=== PATIENT | male | born 1930 | race Caucasian/White ===

== ENCOUNTER 2019-03-07 11:59 | Inpatient (IN) | payer MEDICARE, OTHER ==
--- NOTE | 2019-03-07 13:14 | CT ---
CT head noncontrast HISTORY: Fall. Head injury. FINDINGS: No comparison. There is no evidence of acute intracranial hemorrhage or infarct. The ventri cles are mildly distended with diffuse volume loss. 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 There is no mass effect or shift of midline structures. Calcification in the arteri al structures of the brain base. Mucosal thickening within the ethmoid air cells. No air-fluid levels. IMPRESSION: No acute intracranial abnormalities are demonstrated.
--- NOTE | 2019-03-07 13:59 | RAD ---
XR Hip Lt 2-3 View HISTORY: Fall, left hip pain FINDINGS: No fracture or dislocation is identified. Degenerative changes are present. There is suggestion of lytic lesion in the neck of the left femur on the oblique image. This should b e evaluated with MRI.
[2019-03-07 14:02] LABS: #Basophils 0.1 thou/uL (0.0-0.2); #Eosinphils 0.2 thou/uL (0.0-0.7); #Lymphocytes 2.2 thou/uL (1.20-3.40); #Monocytes 0.8 thou/uL (0.11-0.59); #Neutrophils 4.9 thou/uL (1.40-6.50); %Basophils 0.8 % (0.0-1.0); %Eosinophils 2.4 % (0.0-10.0); %Monocytes 10.2 % (0.0-10.0); %Neutrophils 59.6 % (42.0-75.0); Hemoglobin 14.5 g/dL (14.0-18.0); Mean Corpuscular HGB CONC 32.2 g/dL (32.0-36.0); Mean Corpuscular Hemoglobin 31.7 pg (27.0-31.0); Mean Corpuscular Volume 98.4 fL (78.0-98.0); Mean Platelet Volume 7.2 fL (7.4-10.4); Platelet Count 258 thou/uL (130-400); RBC Distribution Width 13.3 % (11.5-14.5); Red Blood Cell (RBC) Count 4.58 mill/uL (4.70-6.10); White Blood Cell (WBC) Count 8.2 thou/uL (4.8-10.8)
--- NOTE | 2019-03-07 14:15 | RAD ---
Exam: XR Femur Lt 2 View STANDARD HISTORY: Left lower extremity pain. COMPARISON: None FINDINGS: There was suggestion of a lucency in the region of the left femoral neck on views of the left hip. Ho wever, this is not seen on this examination, and findings on views of left hip are likely artifactual and probably related to overlying soft tissues. No obvious lytic or sclerotic lesion is s een. No acute fracture, dislocation, or other acute osseous abnormality is identified. Calcifications seen posterior to the left knee which are difficult to further localize but could pote ntially be related to loose bodies within a Izquierdo's cyst. IMPRESSION: 1. Calcification's posterior to the knee which are difficult to further localize but could potentiall y be related to loose bodies within a Izquierdo's cyst. Ultrasound examination may be useful for further evaluation of questionable Izquierdo's cyst in the popliteal fossa. 2. No acute osseous abnormality.
[2019-03-07 14:29] LABS: ALT (SGPT) 25 U/L (8-55); AST (SGOT) 21 U/L (5-34); Albumin 3.9 g/dL (3.4-4.8); Alkaline Phosphatase 64 U/L (40-150); Anion Gap 14 mmol/L (10-20); BUN (Urea Nitrogen) 22 mg/dL (8.4-25.7); Bilirubin, Total 0.8 mg/dL (0.2-1.2); Calc. Creatinine Clearance 0 mL/min (70-130); Calcium 8.8 mg/dL (7.8-10.44); Carbon Dioxide 26 mmol/L (23-31); Chloride 96 mmol/L (98-107); Estimated GFR-MDRD 74; Globulin 2.4 g/dL (2.4-3.5); Glucose 107 mg/dL (83-110); Potassium 3.4 mmol/L (3.5-5.1); Protein, Total 6.3 g/dL (5.8-8.1); Sodium 133 mmol/L (136-145)
--- NOTE | 2019-03-07 17:56 | MRI ---
MRI Lower Ext Jt Lt without Con HISTORY: Questionable lytic lesion seen within the left femoral neck. History of several falls concer n for a fracture. COMPARISON: Plain film examination of the left hip done earlier today. FINDINGS: The pelvic ring is intact. The SI joints are symmetric. No diastases of the symphysis. No f ractures of the bony pelvic ring. Small [id number] images of the left hip show mild left hip abductor strain. There is no evidence o f fracture. There is no signs of any lytic bony process within the left femoral neck. Mild arthritic changes of the left hip joint are seen. There is a degenerative type tear of the hip labrum . There is no acute bony process noted. Mild tendinopathy changes of the hamstring tendon origins are incidentally seen. The gluteus minimus and medius tendons are intact with mild tendinopathy change. IMPRESSION: No acute injury. Incidental findings as noted above.
[2019-03-07 18:01] LABS: Bilirubin Small (Negative); Blood, Urine Negative (Negative); Clarity CLEAR (Clear); Glucose, Urine (Dipstick) Negative (Negative); Leukocyte Negative (Negative); Nitrite Negative (Negative); Protein, Urine (Dipstick) 100 mg/dL (Neg-Trace)
[2019-03-07 18:03] LABS: Bacteria/HPF None Seen HPF (None Seen); Pathc Cast-AUWi Flag 0.81 (0-2.49); RBC/HPF 0-3 HPF (0-3); Squamous Epithelial 0-3 HPF (0-3); WBC/HPF 0-3 HPF (0-3)
[2019-03-07 18:21] LABS: Hyaline Casts/LPF 0-3 HYALINE CAST LPF (0-3 Hyaline)
[2019-03-07] MEDS ORDERED: cloNIDine 0.1 MG TAB ONE (19:45)
[2019-03-07] MEDS ORDERED: Ondansetron PF 4 MG/2 ML Vial IVP PRN (21:08)
[2019-03-07] MEDS ORDERED: Ondansetron ODT 4 MG TAB PO PRN (21:08)
[2019-03-07] MEDS ORDERED: Acetaminophen 650 MG Suppository PR PRN (21:08)
[2019-03-07 21:30] LABS: Magnesium 2.2 mg/dL (1.6-2.6)
[2019-03-07] MEDS: hydrALAZINE 20 MG/ML VIAL SLOW IVP PRN (21:44)
--- NOTE | 2019-03-07 22:15 | RAD ---
PORTABLE CHEST: HISTORY: Shortness of breath. COMPARISON: None. FINDINGS: Heart size appears enlarged. There are chronic lung changes seen. There are pleural and parenchymal changes in the left base. There also appears to be elevation to the hemidiaphragm. The changes cou ld be chronic in nature. A PA and lateral chest film would be helpful in better assessing what porti on of this is elevated diaphragm and what portion is pleural and parenchymal lung change. IMPRESSION: Cardiomegaly with pleural and parenchymal change in the left base and what appears to be elevation of the left hemidiaphragm. Findings as noted above. POS: [facility]
--- NOTE | 2019-03-07 23:04 | HP ---
CHIEF COMPLAINT: Multiple falls and weakness. HISTORY OF PRESENT ILLNESS: Mr. Newell is a pleasant 88-year-old man with a history of CVA and hypertension, who had a fall on last week after attempting to get out of a sofa lazy boy. He reports hitting his head. The patient has had multiple falls since then due to loss of balance. Per his family, he has become progressively weaker and now requiring assistance in order to stand. He reports having issues with chronic lower back pain due to a herniated disk of L5, for which he has received physical therapy. He presented complaining of left hip pain. The patient denies having any dizziness, chest pain or shortness of breath. He has a known history of hypertension; however, his primary care physician took him off his blood pressure medicines approximately 2 weeks ago. According to his family, his blood pressure had normalized. He is reported to have had a viral gastroenteritis 2 weeks ago and the family feels that is what precipitated his gradual weakness and weight loss. Family unable to quantify exactly how much weight he has lost recently. In the emergency department, he was noted to be hypertensive with a systolic blood pressure of 210. He was asymptomatic with this. Per ER physician, plans were to give him a dose of clonidine. The patient underwent multiple investigations including a CT of the brain, which was unremarkable. He had a hip x-ray and femur x-ray with report stating there was a possible lytic lesion involving the left femur. Further evaluation with an MRI was recommended. MRI was done and showed no abnormal findings. The patient's family very concerned about his weakness and inability to walk or stand without any assistance, where normally he would be able to walk on his own independently and uses a walker for long distances. REVIEW OF SYSTEMS: The patient denies having any recent fevers, chills, or sweats. No headaches or dizziness. Reports feeling occasionally off balance when standing. Denies having any nausea or vomiting. No abdominal pain or cramping. He has been moving his bowels as normal. No recent diarrhea. No urinary symptoms. Denies having any numbness, or tingling involving any of his extremities. No vision disturbances or slurred speech. All other review of systems are negative. PAST MEDICAL HISTORY: 1. Previous CVA. 2. "Leaky valve". 3. Hypertension. 4. Skin cancer. PAST SURGICAL HISTORY: Skin cancer excision. SOCIAL HISTORY: The patient denies any smoking. He drinks rarely, usually on his birthday or other special occasions. Denies any illicit drug use. ALLERGIES: STATINS. CURRENT MEDICATIONS: None. PHYSICAL EXAMINATION: GENERAL: The patient appears well developed, well nourished, and is in no acute distress. VITAL SIGNS: Temperature 98, pulse 57, respirations 16, O2 saturation 96% on room air, blood pressure 188/98. HEENT: Normocephalic and atraumatic. Pupils are equal, round, reactive to light. Sclerae are without icterus. Oropharynx is clear. Extraocular movements normal. Facial movements normal. Facial sensation intact. NECK: Supple without lymphadenopathy. LUNGS: Clear to auscultation bilaterally. CARDIAC: Regular rate and rhythm. Audible murmur. ABDOMEN: Soft, nontender, nondistended. Normoactive bowel sounds present. No guarding or rigidity. No renal angle tenderness. EXTREMITIES: No lower leg swelling or edema. Power 5/5 in upper extremities, inability to straight leg raise on the left side due to pain in the left hip region. Sensation intact. SKIN: Without rash or jaundice. LABORATORY DATA: White blood count 8.2, hemoglobin 14.5, hematocrit 45, platelets 258. Sodium 133, ESR 13, potassium 3.4, anion gap 14, BUN 22, creatinine 0.96, GFR 74, glucose 107, and calcium 8.8, magnesium 2.2. LFTs unremarkable. CRP 0.78. Urinalysis notable for 100 of protein and 15 ketones and small amount of bilirubin. IMAGING DATA: As mentioned above in HPI. IMPRESSION AND PLAN: Mr. Newell is a pleasant 88-year-old man being admitted for management of the followin. Weakness/multiple falls. The patient reports feeling unsteady at times when he stands. CT of the brain unremarkable. Denies any dizziness, but does report lightheadedness. We will obtain orthostatic blood pressure. Audible murmur on exam. We will obtain echo and BNP, to assess for any underlying valvular heart disease being the culprit for his weakness. 2. Hypertensive urgency. No end-organ damage at this present time. The patient is asymptomatic. We will give p.r.n. antihypertensives and continue to monitor. The patient was recently on blood pressure medications. We will confirm and resume most recent medications given. Continue to monitor blood pressure. 3. Low back pain, chronic and per patient without any changes. No neuro deficits on exam involving the lower extremities. He has undergone multiple imaging studies including hip x-ray, MRI of the lower extremity and femur x-ray, and results essentially unremarkable. We will discuss with attending if CT pelvis would be beneficial. PT, OT are requested. 4. Gastrointestinal prophylaxis. 5. Deep venous thrombosis prophylaxis with mechanical SCDs. 6. Code status, DNR. Surrogate decision maker is his son, Salbador Newell. He has medical power of associate attorney. The patient's case to be discussed with Dr. Mullins for further recommendations. Job ID: [id number]
--- NOTE | 2019-03-08 02:05 | PDOC.EVN ---
Event Note - Event Note Event Note: Informed by RN patient with HR 40-60s. Went from NSR to 1st degree AV bloc, to 2nd degree and now to 3rd degree AV block. Patient sleeping at present. Stat EKG requested. If patient asymptomatic will continue to monitor. Cardiology consult for tmrw AM. Plan per discussion with Dr. Mullins. EKG done in ER: 1st degree AV block with blocked PACs and incomplete RBBB.
[2019-03-08] MEDS: hydrALAZINE 20 MG/ML VIAL SLOW IVP PRN ×2 (03:14→23:16)
[2019-03-08 05:06] LABS: #Basophils 0.1 thou/uL (0.0-0.2); #Eosinphils 0.1 thou/uL (0.0-0.7); #Lymphocytes 1.7 thou/uL (1.20-3.40); #Monocytes 0.5 thou/uL (0.11-0.59); #Neutrophils 3.8 thou/uL (1.40-6.50); %Basophils 0.9 % (0.0-1.0); %Eosinophils 2.2 % (0.0-10.0); %Lymphocytes 27.2 % (21.0-51.0); %Monocytes 8.2 % (0.0-10.0); %Neutrophils 61.5 % (42.0-75.0); Hemoglobin 14.2 g/dL (14.0-18.0); Mean Corpuscular HGB CONC 31.3 g/dL (32.0-36.0); Mean Corpuscular Hemoglobin 30.9 pg (27.0-31.0); Mean Corpuscular Volume 98.9 fL (78.0-98.0); Mean Platelet Volume 7.4 fL (7.4-10.4); Platelet Count 236 thou/uL (130-400); RBC Distribution Width 13.5 % (11.5-14.5); Red Blood Cell (RBC) Count 4.58 mill/uL (4.70-6.10); White Blood Cell (WBC) Count 6.2 thou/uL (4.8-10.8)
[2019-03-08 05:23] LABS: Anion Gap 14 mmol/L (10-20); BUN (Urea Nitrogen) 14 mg/dL (8.4-25.7); Calc. Creatinine Clearance 89 mL/min (70-130); Calcium 8.5 mg/dL (7.8-10.44); Carbon Dioxide 23 mmol/L (23-31); Chloride 100 mmol/L (98-107); Estimated GFR-MDRD Greater than 90; Glucose 106 mg/dL (83-110); Potassium 3.3 mmol/L (3.5-5.1); Sodium 134 mmol/L (136-145)
[2019-03-08] MEDS: Famotidine/PF 20 mg/2ml Vial SLOW IVP SCH ×2 (09:43→19:42)
--- NOTE | 2019-03-08 13:24 | PDOC.PN ---
- Subjective Encounter Start Date: 03/08/19 Encounter Start Time: 11:30 Subjective: Patient seen today for f/u on admission for multiple falls, transient -: leg weakness, and then overnight bradycardia with 2nd/3rd heartblock -: Cardiology consult added overnight - Objective Resuscitation Status - Order Detail: 03/07/19 21:08 Resuscitation Status Routine Co-Sign Provider: Resuscitation Status: DNAR: NO Resuscitation Discussed with: Family, son has MPOA Vital Signs & Weight: Vital Signs (12 hours) Temp Pulse Resp BP BP Pulse Ox 03/08/19 11:55 98.5 F 78 18 173/85 H 94 L 03/08/19 07:45 97.5 F L 80 18 159/76 H 94 L 03/08/19 04:30 66 178/75 H 03/08/19 04:00 97.9 F 48 L 18 94 L 03/08/19 03:14 49 L 193/88 H Weight Weight 86.183 kg Result Diagrams: 03/08/19 04:18 03/08/19 04:18 Phys Exam - Physical Examination HEENT: PERRLA, moist MMs Neck: no nodes, full ROM Respiratory: clear to auscultation bilateral Cardiovascular: RRR, no significant murmur Gastrointestinal: soft, non-tender Musculoskeletal: no edema, pulses present Neurological: normal sensation, moves all 4 limbs Lymphatic: no nodes Psychiatric: normal affect, A&O x 3 Deviation from normal: Pleasantly confused Skin: no rash, cap refill <2 seconds Dx/Plan (1) Hypertension Code(s): I10 - ESSENTIAL (PRIMARY) HYPERTENSION Status: Acute (2) TIA (transient ischemic attack) Code(s): G45.9 - TRANSIENT CEREBRAL ISCHEMIC ATTACK, UNSPECIFIED Status: Acute (3) Weakness Code(s): R53.1 - WEAKNESS Status: Acute - Plan cont current plan of care, PT/OT, psychologist social Awaiting Cardiology input, patient with bradycardia in the 30's overnight -: PT/OT evaluation, ECHO are still pending -: Per patient's family, INP Rehab evaluated pt in the ED but insurance req -: approval. Lives independently and some interim placement for PT/OT -: may be beneficial. CM consult has been requested. * .
--- NOTE | 2019-03-08 13:57 | CON ---
DATE OF CONSULTATION: 03/08/2019 ADMITTING PHYSICIAN: Hospitalist Service. CONSULTING PHYSICIAN: Dr. Lowery, Cardiology. REASON FOR CONSULTATION: Intermittent heart block. HISTORY OF PRESENT ILLNESS: Mr. Newell is a pleasant, 88-year-old, male with past medical history of hypertension. He tells me he regularly sees Dr. Freda Lira. He also gives history of a leaky aortic valve in the past, but cannot really tell me much more about cardiac history. He does have some moderate dementia and goes into tangential stories when asking his history. We were consulted because the patient developed second and third-degree heart block overnight. He was brought to the emergency room for hip pain and history of frequent falls. When asked, the patient has no memory of this. He does admit to some dizziness, and he knows that he has fallen at times, but cannot give me specifics. When asked when his last fall was, he tells me that I would have to ask the [facility] as they tell him when he has fallen. In the emergency room, his systolic blood pressure was 210. He tells me that he recently saw Dr. Freda Lira, who stopped all of his medications because he was healthy and did not need them. The patient's telemetry showed sinus rhythm with frequent ectopic PACs. He has had intermittent second and third-degree AV block with heart rates as low as 40 beats per minute. He is asymptomatic with this, the best I can tell, as he is lying in bed. He denies any chest pain, shortness of breath, dyspnea on exertion, or edema. BNP was mildly elevated on admission at 312. Chest x-ray shows a left pleural effusion. Cardiomegaly cannot be ruled out. Echocardiogram is ordered and is pending. PAST MEDICAL HISTORY: 1. Hypertension and history of previous CVA per initial H and P documented. 2. History of aortic regurgitation per the patient. PAST SURGICAL HISTORY: Unknown. SOCIAL HISTORY: The patient lives in [facility]. Denies any tobacco or alcohol use. ALLERGIES: STATINS ARE DOCUMENTED. CURRENT MEDICATIONS: None prior to admission. PHYSICAL EXAMINATION: GENERAL: This is a pleasant elderly male, who is in no acute distress. He is pleasant, resting comfortably. NEUROLOGIC: He is alert, awake, and oriented x3. VITAL SIGNS: Temperature 97.5, respiratory rate is 18, pulse is 80, blood pressure 159/76. I's and O's, not recorded. HEENT: Head is atraumatic and normocephalic. Mucous membranes are moist. NECK: Supple. No JVD or bruits noted. CHEST: Clear bilaterally with decreased breath sounds in the left lower lobe posteriorly. CARDIOVASCULAR: Reveals regular rate and rhythm with intermittent ectopy. ABDOMEN: Soft, nontender to palpation, and nondistended. EXTREMITIES: Show no clubbing, cyanosis, or edema. SKIN: Warm and dry. VASCULAR: Pedal pulses are 2+ equal and bilateral. LABORATORY DATA: As mentioned above. BMP shows sodium 134, potassium 3.3. IMPRESSION: 1. Complete heart block. 2. Second-degree atrioventricular block, type 2. 3. History of falls. 4. Hypertension. At this time, the patient is stable. Telemetry currently shows he is in sinus rhythm and he is asymptomatic. He is DNR status. I have attempted to discuss pacemaker placement with the patient. He does have some moderate dementia, and although he is agreeable, I would feel more comfortable if his family was aware of the situation and able to consent also. He does give me his daughter's name as a potential contact. I tried to call his son, who did not answer, and I left a message. Currently, we will keep him n.p.o. for potential pacemaker placement, and 2D echocardiogram is pending to rule out any congestive failure. His blood pressure is elevated, and we will address this when his n.p.o. status was removed. Currently, he is receiving hydralazine p.r.n. Job ID: [id number]
[2019-03-08] MEDS: Acetaminophen 325 MG TAB PO PRN (14:43)
--- NOTE | 2019-03-08 17:23 | CON ---
DATE OF CONSULTATION: REASON FOR CONSULTATION: Arrhythmia. HISTORY OF PRESENT ILLNESS: Mr. Moore is a pleasant 88-year-old gentleman, who has been seen and evaluated by Dr. Jon Vilchis in the past. The patient was last seen in 2017. At that time, he was seen for moderate aortic insufficiency. EKG at that time showed a right bundle branch block with left axis deviation. Recently, Mr. Newell presented with falls. It is very difficult to get a good history from Mr. Do. His thoughts seem to be tangential. He is not able to focus in on the question. Multiple questions were answered without a true answer to my question. It is unknown whether he is truly having syncopal episodes and falling. My suspicion is he has had leg weakness for some time, which has caused his recent falls. His EKG did suggest second-degree type 1 AV block. This was reviewed with Dr. Paul Ornelas in EP. Otherwise, please see Erica Romano's note for full details. PHYSICAL EXAMINATION: VITAL SIGNS: Blood pressure 160/80, pulse 75, temperature 98.1. GENERAL: Patient is a pleasant male, who is in no acute distress. The patient appears their stated age. NEUROLOGIC: The patient is alert and oriented x3 with no focal neurologic deficits. HEENT: Sclerae without icterus. Mouth has moist mucous membranes with normal pallor. NECK: No JVD. Carotid upstroke brisk. No bruits bilaterally. LUNGS: Clear to auscultation with unlabored respirations. BACK: No scoliosis or kyphosis. CARDIAC: Regular rate and rhythm with normal S1 and S2. No S3 or S4 noted. No significant rubs, murmurs, thrills, or gallops noted throughout the precordium. PMI is not displaced. There is no parasternal heave. ABDOMEN: Soft, nontender, nondistended. No peritoneal signs present. No hepatosplenomegaly. No abnormal striae. EXTREMITIES: 2+ femoral and 2+ dorsalis pedis pulses. No cyanosis, clubbing, or edema. SKIN: No gross abnormalities. PERTINENT LABORATORY DATA: Hemoglobin 14.2, hematocrit 45.3. IMPRESSION: 1. Recent fall. 2. Dysrhythmia. RECOMMENDATIONS: Mr. Moore does not have a true indication for a pacemaker. He does have right bundle branch block with left axis deviation, but I am unsure whether his falls are truly secondary to a dysrhythmia. I would like to speak to his family before proceeding with a more aggressive approach with a pacemaker. He may also benefit from a 3-week event recorder prior to any other treatment. Otherwise, from my standpoint, I do not have any further recommendations. Job ID: [id number]
[2019-03-09] MEDS: hydrALAZINE 20 MG/ML VIAL SLOW IVP PRN ×3 (03:18→17:05)
[2019-03-09] MEDS: Famotidine/PF 20 mg/2ml Vial SLOW IVP SCH (08:29)
[2019-03-09] MEDS: Acetaminophen 325 MG TAB PO PRN ×2 (08:31→19:48)
--- NOTE | 2019-03-09 18:33 | PDOC.PN ---
- Subjective Encounter Start Date: 03/09/19 Encounter Start Time: 18:30 Subjective: f/u s/p fall and dysrhythmia with 2nd degree Type I AV block. -: No new complaints currently. - Objective Resuscitation Status - Order Detail: 03/07/19 21:08 Resuscitation Status Routine Co-Sign Provider: Resuscitation Status: DNAR: NO Resuscitation Discussed with: Family, son has SEAMUS TONEY Reviewed: Yes Vital Signs & Weight: Vital Signs (12 hours) Temp Pulse Resp BP Pulse Ox 03/09/19 17:05 69 03/09/19 16:30 98.3 F 69 16 188/87 H 93 L 03/09/19 12:05 98.2 F 63 16 167/72 H 94 L 03/09/19 08:29 53 L 03/09/19 07:45 97.9 F 71 18 200/80 H 95 Weight Weight 190 lb Result Diagrams: 03/08/19 04:18 03/08/19 04:18 Additional Labs: Laboratory Tests 03/07/19 03/07/19 03/07/19 13:41 13:41 13:41 Sodium 133 L Potassium 3.4 L Magnesium 2.2 Creatine Kinase 212 H C-Reactive Protein 0.78 H B-Natriuretic Peptide 03/07/19 20:35 Sodium Potassium Magnesium Creatine Kinase C-Reactive Protein B-Natriuretic Peptide 312.7 H Radiology Reviewed by me: Yes (CT brain - neg) EKG Reviewed by me: Yes (Tele - A-fib in 80's) Phys Exam - Physical Examination Constitutional: NAD HEENT: PERRLA, sclera anicteric, oral pharynx no lesions Neck: no nodes, no JVD, supple, full ROM Respiratory: no wheezing, no rales, no rhonchi, clear to auscultation bilateral S1, S2 Cardiovascular: no significant murmur, no rub, gallop, irregular Gastrointestinal: soft, non-tender, no distention, positive bowel sounds Musculoskeletal: no edema, pulses present Neurological: normal sensation, moves all 4 limbs Psychiatric: A&O x 3 Skin: normal turgor, cap refill <2 seconds Dx/Plan (1) Second degree AV block, Mobitz type I Code(s): I44.1 - ATRIOVENTRICULAR BLOCK, SECOND DEGREE Status: Acute Comment : Plan for ILR in am, limit AV sanket blocking agents (2) Hypertension Code(s): I10 - ESSENTIAL (PRIMARY) HYPERTENSION Status: Chronic Qualifiers: Hypertension type: essential hypertension Qualified Code(s): I10 - Essential (primary) hypertension Comment: Labile, serial monitoring, Hydralazine IV PRN, start Hydralazine 25mg TID (3) Hypokalemia Code(s): E87.6 - HYPOKALEMIA Status: Acute Comment: KCL 40meq BID, repeat K + level in am (4) Weakness Code(s): R53.1 - WEAKNESS Status: Chronic Comment: Suspect chronic, PT for functional assessment, fall risk precautions - Plan PT/OT, social director, out of bed/ambulate, DVT proph w/SCDs Stable currently -: Start Hydralazine 25mg TID -: Plan for Implantable Loop Recorder 03/10/19 -: 2D echo pending -: AM lab: BMP * .
--- NOTE | 2019-03-09 18:43 | PRG ---
DATE OF SERVICE: 03/09/2019 SUBJECTIVE: No significant change overnight except for development of new onset atrial fibrillation. He appears to be rate controlled. OBJECTIVE: VITAL SIGNS: Blood pressure 167/72, pulse 63, temp 98.2. LUNGS: Clear to auscultation. HEART: Irregularly irregular. ABDOMEN: Soft, nontender, nondistended. EXTREMITIES: No edema. PERTINENT LABORATORY DATA: Hemoglobin 14.2. Creatinine 0.7. IMPRESSION: 1. New onset atrial fibrillation. 2. Falls. 3. Dysrhythmia. RECOMMENDATIONS: I had a long discussion with Mr. Newell's son Salbador today. I did recommend a 3-week event recorder. He does not feel his father will be able to tolerate the monitor. We therefore proceed with implantable loop recorder to assess for significant bradycardia that may be causing his falls. Again, it is very difficult to pin down Mr. Newell on true symptoms. I did discuss the procedure with Mr. Newell in full detail. Risks included, but not limited to the following: Bleeding, infection in addition to pneumothorax. All questions were answered. Mr. Newell would like to proceed with an implantable loop recorder. I also discussed anticoagulation therapy with Mr. Newell. He has reservations and is concerned about bleeding. His son does not feel he can be compliant with anticoagulation therapy. We will therefore proceed with full-dose aspirin for now. Job ID: [id number]
[2019-03-09] MEDS ORDERED: Potassium Chloride 20 MEQ TAB PO SCH (18:45)
[2019-03-09] MEDS ORDERED: Amlodipine 5 MG TAB PO SCH (18:45)
[2019-03-10] MEDS ORDERED: Lidocaine 1% w/Epinephrine 1:100K 20 ML VIAL ONE ×2 (07:17→07:29)
[2019-03-10] MEDS ORDERED: Amlodipine 5 MG TAB PO SCH (09:00)
[2019-03-10] MEDS: Famotidine/PF 20 mg/2ml Vial SLOW IVP SCH ×2 (09:05→10:01)
[2019-03-10] MEDS: Potassium Chloride 20 MEQ TAB PO SCH ×2 (09:05→16:37)
[2019-03-10] MEDS: Acetaminophen 325 MG TAB PO PRN ×2 (09:05→20:02)
[2019-03-10] MEDS: hydrALAZINE 25 MG TAB PO SCH ×4 (09:05→20:01)
[2019-03-10] MEDS: hydrALAZINE 20 MG/ML VIAL SLOW IVP PRN (11:15)
[2019-03-10] MEDS: cloNIDine 0.1 MG TAB PO PRN (12:27)
--- NOTE | 2019-03-10 15:45 | RAD ---
LUMBAR SPINE 3 VIEWS: HISTORY: Lumbar radicular pain. FINDINGS: There is some dextroscoliosis of the lumbar vertebral column with severe multilevel disk-osteophytosi s and facet arthrosis. Mild vertical height loss of T11 which has more of an old appearance. Eviden ce for grade I spondylolisthesis of L5 on S1 with probable bilateral pars defects. If there is kasi rn for radiculopathy, consideration for followup MRI might be of benefit. 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 Consider followup MRI. POS: [facility]
[2019-03-10 16:34] LABS: Anion Gap 13 mmol/L (10-20); BUN (Urea Nitrogen) 14 mg/dL (8.4-25.7); Calc. Creatinine Clearance 86 mL/min (70-130); Calcium 8.4 mg/dL (7.8-10.44); Carbon Dioxide 25 mmol/L (23-31); Chloride 100 mmol/L (98-107); Estimated GFR-MDRD Greater than 90; Glucose 106 mg/dL (83-110); Potassium 3.9 mmol/L (3.5-5.1); Sodium 134 mmol/L (136-145)
[2019-03-10] MEDS: Famotidine 20 MG TAB PO SCH (20:01)
--- NOTE | 2019-03-10 21:14 | PDOC.PN ---
- Subjective Encounter Start Date: 03/10/19 Encounter Start Time: 13:00 Doing ok. Tolerated the Loop recorder implantation well. Has had some pain in the left lower back and hip area. Says it is radiculopathy. Also says that he has taken supplements from a "Dr. Rivera" that lowered his blood sugar and blood pressure. Says his doctor ultimately took him off all BP meds and his BP normalized. Thinks BP meds are making his BP higher. - Objective Resuscitation Status - Order Detail: 03/07/19 21:08 Resuscitation Status Routine Co-Sign Provider: Resuscitation Status: DNAR: NO Resuscitation Discussed with: Family, son has MPOA Vital Signs & Weight: Vital Signs (12 hours) Temp Pulse Pulse Pulse Resp BP BP 03/10/19 18:04 03/10/19 16:37 61 03/10/19 16:00 97.5 F L 61 18 03/10/19 12:27 185/77 H 03/10/19 12:00 97.2 F L 73 15 03/10/19 11:15 84 03/10/19 10:38 74 74 226/89 H BP BP Pulse Ox 03/10/19 18:04 180/79 H 03/10/19 16:37 03/10/19 16:00 197/80 H 96 03/10/19 12:27 03/10/19 12:00 185/77 H 94 L 03/10/19 11:15 03/10/19 10:38 236/99 H Weight Weight 190 lb Result Diagrams: 03/08/19 04:18 03/10/19 16:07 Phys Exam - Physical Examination Constitutional: NAD Respiratory: no wheezing, no rales, no rhonchi Cardiovascular: no significant murmur, irregular Gastrointestinal: soft, non-tender, no distention, positive bowel sounds Musculoskeletal: no edema Slight TTP in the left mid-buttock area. Normal ROM of hip. Neurological: non-focal Psychiatric: normal affect Dx/Plan (1) Second degree AV block, Mobitz type I Code(s): I44.1 - ATRIOVENTRICULAR BLOCK, SECOND DEGREE Status: Acute Comment : Plan for ILR in am, limit AV sanket blocking agents (2) Sciatica Code(s): M54.30 - SCIATICA, UNSPECIFIED SIDE Status: Acute (3) Fall Code(s): W19.XXXA - UNSPECIFIED FALL, INITIAL ENCOUNTER Status: Acute (4) Hypertension Code(s): I10 - ESSENTIAL (PRIMARY) HYPERTENSION Status: Chronic Qualifiers: Hypertension type: essential hypertension Qualified Code(s): I10 - Essential (primary) hypertension Comment: Labile, serial monitoring, Hydralazine IV PRN, start Hydralazine 25mg TID - Plan * X-ray of lumbar spine. * Increase the hydralazine. * Discussed his feelings regarding the BP meds. Will not be stopping them. * Cards to follow up on the loop recorder. * Awaiting placement in rehab.
[2019-03-11] MEDS: hydrALAZINE 20 MG/ML VIAL SLOW IVP PRN ×3 (05:45→18:43)
[2019-03-11] MEDS: Acetaminophen 325 MG TAB PO PRN ×3 (08:31→21:47)
[2019-03-11] MEDS: Potassium Chloride 20 MEQ TAB PO SCH ×2 (08:31→16:46)
[2019-03-11] MEDS: Famotidine 20 MG TAB PO SCH ×2 (08:31→20:13)
[2019-03-11] MEDS: hydrALAZINE 25 MG TAB PO SCH ×3 (08:31→20:12)
[2019-03-11] MEDS: cloNIDine 0.1 MG TAB PO PRN ×2 (16:46→21:47)
[2019-03-12] MEDS: Acetaminophen 325 MG TAB PO PRN ×3 (01:58→14:55)
[2019-03-12] MEDS: Potassium Chloride 20 MEQ TAB PO SCH (08:45)
[2019-03-12] MEDS: Famotidine 20 MG TAB PO SCH ×2 (08:45→21:11)
[2019-03-12] MEDS: hydrALAZINE 25 MG TAB PO SCH ×3 (08:45→21:11)
--- NOTE | 2019-03-12 09:05 | PDOC.PN ---
- Subjective Encounter Start Date: 03/11/19 Encounter Start Time: 13:00 Patient is doing well. No complaints. His son is her today. - Objective Resuscitation Status - Order Detail: 03/07/19 21:08 Resuscitation Status Routine Co-Sign Provider: Resuscitation Status: DNAR: NO Resuscitation Discussed with: Family, son has MPOA Vital Signs & Weight: Vital Signs (12 hours) Temp Pulse Resp BP BP Pulse Ox 03/12/19 08:45 74 03/12/19 08:38 97.4 F L 74 20 179/77 H 95 03/12/19 04:00 97.8 F 48 L 16 113/55 L 95 03/11/19 23:13 169/75 H 03/11/19 22:40 188/79 H 03/11/19 22:10 184/76 H 03/11/19 21:47 197/113 H 03/11/19 21:45 197/113 H Weight Weight 183 lb I&O: 03/11/19 03/12/19 03/13/19 06:59 06:59 06:59 Intake Total 200 200 Output Total 450 450 Balance -250 -250 Result Diagrams: 03/08/19 04:18 03/10/19 16:07 Phys Exam - Physical Examination Constitutional: NAD Respiratory: no wheezing, no rales, no rhonchi, clear to auscultation bilateral Cardiovascular: RRR, no significant murmur Gastrointestinal: soft, non-tender, no distention Neurological: non-focal Skin: normal turgor Deviation from normal: Left chest loop recorder incision looks good. Dx/Plan (1) Second degree AV block, Mobitz type I Code(s): I44.1 - ATRIOVENTRICULAR BLOCK, SECOND DEGREE Status: Acute Comment : Plan for ILR in am, limit AV sanket blocking agents (2) Sciatica Code(s): M54.30 - SCIATICA, UNSPECIFIED SIDE Status: Acute (3) Fall Code(s): W19.XXXA - UNSPECIFIED FALL, INITIAL ENCOUNTER Status: Acute (4) Hypertension Code(s): I10 - ESSENTIAL (PRIMARY) HYPERTENSION Status: Chronic Qualifiers: Hypertension type: essential hypertension Qualified Code(s): I10 - Essential (primary) hypertension Comment: Labile, serial monitoring, Hydralazine IV PRN, start Hydralazine 25mg TID - Plan * Long discussion with the patient's son. * He did confirm what I had expected which is that the patient's PCP did not stop his BP meds. The physician had stopped one, but the patient had already discontinued the others himself. * The patient seem have decent recall and can interact somewhat normally, but has clear deficits in judgment and reasoning. * I re-affirmed to the patient that I do not intend to stop his antihypertensives. In fact they may need to be titrated upward. * He is medically stable to go to rehab.
[2019-03-12] MEDS ORDERED: Aspirin 81 mg Enteric Coated Tablet PO SCH (11:02)
[2019-03-12] MEDS ORDERED: Amlodipine 10 MG TAB PO SCH (11:30)
[2019-03-12] MEDS ORDERED: Aspirin 325 MG TAB PO SCH (11:30)
[2019-03-12 11:45] LABS: Anion Gap 11 mmol/L (10-20); BUN (Urea Nitrogen) 14 mg/dL (8.4-25.7); Calc. Creatinine Clearance 79 mL/min (70-130); Calcium 8.3 mg/dL (7.8-10.44); Carbon Dioxide 22 mmol/L (23-31); Chloride 98 mmol/L (98-107); Estimated GFR-MDRD Greater than 90; Glucose 116 mg/dL (83-110); Potassium 4.7 mmol/L (3.5-5.1); Sodium 126 mmol/L (136-145)
[2019-03-12] MEDS: cloNIDine 0.1 MG TAB PO PRN (14:56)
[2019-03-12] MEDS ORDERED: Nitroglycerin 0.4 MG TAB (25 Tab Bottle) SL SCH (17:30)
--- NOTE | 2019-03-12 18:18 | PDOC.PN ---
- Subjective Encounter Start Date: 03/12/19 Encounter Start Time: 11:20 Subjective: pt up in bed no complains - Objective Resuscitation Status - Order Detail: 03/07/19 21:08 Resuscitation Status Routine Co-Sign Provider: Resuscitation Status: DNAR: NO Resuscitation Discussed with: Family, son has MPOA Vital Signs & Weight: Vital Signs (12 hours) Temp Pulse Resp BP BP BP Pulse Ox 03/12/19 18:00 190/79 H 03/12/19 15:47 97.9 F 68 20 196/81 H 94 L 03/12/19 14:57 198/93 H 03/12/19 12:12 97.6 F 60 18 192/110 H 93 L 03/12/19 08:45 74 95 03/12/19 08:38 97.4 F L 74 20 179/77 H 95 Weight Weight 183 lb I&O: 03/11/19 03/12/19 03/13/19 06:59 06:59 06:59 Intake Total 200 200 Output Total 450 450 Balance -250 -250 Result Diagrams: 03/08/19 04:18 03/12/19 11:14 Phys Exam - Physical Examination Neck: no nodes, no JVD, supple, full ROM Respiratory: no wheezing, no rales, no rhonchi, wheezing present, clear to auscultation bilateral Cardiovascular: RRR, no significant murmur, no rub, gallop, irregular Dx/Plan (1) Second degree AV block, Mobitz type I Code(s): I44.1 - ATRIOVENTRICULAR BLOCK, SECOND DEGREE Status: Acute Comment : Plan for ILR in am, limit AV sanket blocking agents (2) Fall Code(s): W19.XXXA - UNSPECIFIED FALL, INITIAL ENCOUNTER Status: Acute (3) Sciatica Code(s): M54.30 - SCIATICA, UNSPECIFIED SIDE Status: Acute (4) TIA (transient ischemic attack) Code(s): G45.9 - TRANSIENT CEREBRAL ISCHEMIC ATTACK, UNSPECIFIED Status: Acute (5) Hypertension Code(s): I10 - ESSENTIAL (PRIMARY) HYPERTENSION Status: Chronic Qualifiers: Hypertension type: essential hypertension Qualified Code(s): I10 - Essential (primary) hypertension Comment: Labile, serial monitoring, Hydralazine IV PRN, start Hydralazine 25mg TID - Plan pt's bp still uncontrolled -: will add additional prns. per notes pt has not been -: taking his bp meds at home. He also states that ASA -: will cause him to have brain bleed. * . Review of Systems - Review of Systems Respiratory: negative: Cough, Dry, Shortness of Breath, Hemoptysis, SOB with Excertion, Pleuritic Pain, Sputum, Wheezing Cardiovascular: negative: chest pain, palpitations, orthopnea, paroxysmal nocturnal dyspnea, edema, light headedness, other Gastrointestinal: negative: Nausea, Vomiting, Abdominal Pain, Diarrhea, Constipation, Melena, Hematochezia, Other - Medications/Allergies Allergies/Adverse Reactions: Allergies Allergy/AdvReac Type Severity Reaction Status Date / Time Bcpeeny-Vtg-Jjj Reductase Allergy Verified 03/07/19 21:17 Inhibitor Medications: Current Medications Acetaminophen (Tylenol) 650 mg PO Q4H PRN PRN Reason: Headache/Fever/Mild Pain (1-3) Last Admin: 03/12/19 14:55 Dose: 650 mg Acetaminophen (Tylenol) 650 mg [place] Q4H PRN PRN Reason: Headache/Fever/Mild Pain (1-3) Amlodipine Besylate (Norvasc) 10 mg PO DAILY [facility] Clonidine (Catapres) 0.1 mg PO Q4H PRN PRN Reason: SBP Greater Than 180 Last Admin: 03/12/19 14:56 Dose: 0.1 mg Famotidine (Pepcid) 20 mg PO Q12HR [facility] Last Admin: 03/12/19 08:45 Dose: 20 mg Hydralazine HCl (Apresoline) 10 mg SLOW IVP Q4H PRN PRN Reason: SBP Greater Than 180 Last Admin: 03/11/19 18:43 Dose: 10 mg Hydralazine HCl (Apresoline) 50 mg PO TID [facility] Last Admin: 03/12/19 14:53 Dose: 50 mg Hydralazine HCl (Apresoline) 20 mg SLOW IVP Q6H PRN PRN Reason: Hypertension Nitroglycerin (Nitrostat) 0.4 mg SL NOW [facility] Stop: 03/12/19 19:30 Last Admin: 03/12/19 17:38 Dose: 0.4 mg Ondansetron HCl (Zofran Odt) 4 mg PO Q6H PRN PRN Reason: Nausea/Vomiting Ondansetron HCl (Zofran) 4 mg IVP Q6H PRN PRN Reason: Nausea/Vomiting Sodium Chloride (Flush - Normal Saline) 10 ml IVF Q12HR PRN PRN Reason: Saline Flush Sodium Chloride (Flush - Normal Saline) 10 ml IVF PRN PRN PRN Reason: Saline Flush
[2019-03-13] MEDS: Acetaminophen 325 MG TAB PO PRN ×4 (03:21→22:09)
[2019-03-13] MEDS: hydrALAZINE 25 MG TAB PO SCH ×3 (08:13→21:02)
[2019-03-13] MEDS: Famotidine 20 MG TAB PO SCH ×2 (08:14→21:02)
[2019-03-13] MEDS: Amlodipine 10 MG TAB PO SCH (08:14)
[2019-03-13] MEDS ORDERED: Aspirin 325 MG TAB PO SCH (09:00)
[2019-03-13 10:07] LABS: Anion Gap 13 mmol/L (10-20); BUN (Urea Nitrogen) 12 mg/dL (8.4-25.7); Calc. Creatinine Clearance 78 mL/min (70-130); Calcium 8.7 mg/dL (7.8-10.44); Carbon Dioxide 21 mmol/L (23-31); Chloride 97 mmol/L (98-107); Estimated GFR-MDRD Greater than 90; Glucose 130 mg/dL (83-110); Potassium 4.3 mmol/L (3.5-5.1); Sodium 127 mmol/L (136-145)
[2019-03-13] MEDS: cloNIDine 0.1 MG TAB PO PRN (12:28)
--- NOTE | 2019-03-13 19:43 | PDOC.PN ---
- Subjective Encounter Start Date: 03/13/19 Encounter Start Time: 09:00 Subjective: pt up in bed no complains - Objective Resuscitation Status - Order Detail: 03/07/19 21:08 Resuscitation Status Routine Co-Sign Provider: Resuscitation Status: DNAR: NO Resuscitation Discussed with: Family, son has MPOA Vital Signs & Weight: Vital Signs (12 hours) Temp Pulse Pulse Pulse Pulse Resp BP 03/13/19 16:45 03/13/19 15:23 53 L 03/13/19 15:19 97.4 F L 53 L 18 03/13/19 12:26 97.6 F 72 18 03/13/19 11:20 72 66 73 191/79 H 03/13/19 09:29 03/13/19 08:05 97.9 F 68 20 BP BP BP BP Pulse Ox 03/13/19 16:45 157/70 H 03/13/19 15:23 03/13/19 15:19 180/73 H 95 03/13/19 12:26 183/78 H 94 L 03/13/19 11:20 186/74 H 176/76 H 03/13/19 09:29 175/76 H 03/13/19 08:05 200/83 H 93 L Weight Weight 183 lb 5 oz I&O: 03/12/19 03/13/19 03/14/19 06:59 06:59 06:59 Intake Total 200 1050 1200 Output Total 450 1025 1000 Balance -250 25 200 Result Diagrams: 03/08/19 04:18 03/13/19 09:35 Phys Exam - Physical Examination Neck: no nodes, no JVD, supple, full ROM Respiratory: no wheezing, no rales, no rhonchi, wheezing present, clear to auscultation bilateral Cardiovascular: RRR, no significant murmur, no rub, gallop, irregular Gastrointestinal: soft, non-tender, no distention, positive bowel sounds Dx/Plan (1) Second degree AV block, Mobitz type I Code(s): I44.1 - ATRIOVENTRICULAR BLOCK, SECOND DEGREE Status: Acute Comment : Plan for ILR in am, limit AV sanket blocking agents (2) Fall Code(s): W19.XXXA - UNSPECIFIED FALL, INITIAL ENCOUNTER Status: Acute (3) Sciatica Code(s): M54.30 - SCIATICA, UNSPECIFIED SIDE Status: Acute (4) TIA (transient ischemic attack) Code(s): G45.9 - TRANSIENT CEREBRAL ISCHEMIC ATTACK, UNSPECIFIED Status: Acute (5) Hypertension Code(s): I10 - ESSENTIAL (PRIMARY) HYPERTENSION Status: Chronic Qualifiers: Hypertension type: essential hypertension Qualified Code(s): I10 - Essential (primary) hypertension Comment: Labile, serial monitoring, Hydralazine IV PRN, start Hydralazine 25mg TID - Plan pt's bp is high, will conitnue to titrate his meds -: will need rehab vs snf -: pt has loop recorder * . Review of Systems - Review of Systems Respiratory: negative: Cough, Dry, Shortness of Breath, Hemoptysis, SOB with Excertion, Pleuritic Pain, Sputum, Wheezing Cardiovascular: negative: chest pain, palpitations, orthopnea, paroxysmal nocturnal dyspnea, edema, light headedness, other - Medications/Allergies Allergies/Adverse Reactions: Allergies Allergy/AdvReac Type Severity Reaction Status Date / Time Rpjmatu-Yzt-Ova Reductase Allergy Verified 03/07/19 21:17 Inhibitor Medications: Current Medications Acetaminophen (Tylenol) 650 mg PO Q4H PRN PRN Reason: Headache/Fever/Mild Pain (1-3) Last Admin: 03/13/19 12:29 Dose: 650 mg Acetaminophen (Tylenol) 650 mg [place] Q4H PRN PRN Reason: Headache/Fever/Mild Pain (1-3) Amlodipine Besylate (Norvasc) 10 mg PO DAILY [facility] Last Admin: 03/13/19 08:14 Dose: 10 mg Clonidine (Catapres) 0.1 mg PO Q4H PRN PRN Reason: SBP Greater Than 180 Last Admin: 03/13/19 12:28 Dose: 0.1 mg Famotidine (Pepcid) 20 mg PO Q12HR [facility] Last Admin: 03/13/19 08:14 Dose: 20 mg Hydralazine HCl (Apresoline) 10 mg SLOW IVP Q4H PRN PRN Reason: SBP Greater Than 180 Last Admin: 03/11/19 18:43 Dose: 10 mg Hydralazine HCl (Apresoline) 50 mg PO TID [facility] Last Admin: 03/13/19 15:23 Dose: 50 mg Hydralazine HCl (Apresoline) 20 mg SLOW IVP Q6H PRN PRN Reason: Hypertension Ondansetron HCl (Zofran Odt) 4 mg PO Q6H PRN PRN Reason: Nausea/Vomiting Ondansetron HCl (Zofran) 4 mg IVP Q6H PRN PRN Reason: Nausea/Vomiting Sodium Chloride (Flush - Normal Saline) 10 ml IVF Q12HR PRN PRN Reason: Saline Flush Sodium Chloride (Flush - Normal Saline) 10 ml IVF PRN PRN PRN Reason: Saline Flush
[2019-03-14] MEDS: hydrALAZINE 20 MG/ML VIAL SLOW IVP PRN ×2 (00:26→13:06)
[2019-03-14] MEDS: Amlodipine 10 MG TAB PO SCH (08:48)
[2019-03-14] MEDS: hydrALAZINE 25 MG TAB PO SCH ×3 (08:48→21:34)
[2019-03-14] MEDS: Famotidine 20 MG TAB PO SCH ×2 (08:48→21:34)
[2019-03-14] MEDS: Acetaminophen 325 MG TAB PO PRN (08:50)
[2019-03-14 09:06] LABS: #Basophils 0.1 thou/uL (0.0-0.2); #Eosinphils 0.1 thou/uL (0.0-0.7); #Lymphocytes 2.4 thou/uL (1.20-3.40); #Monocytes 0.7 thou/uL (0.11-0.59); #Neutrophils 6.3 thou/uL (1.40-6.50); %Basophils 0.8 % (0.0-1.0); %Eosinophils 0.7 % (0.0-10.0); %Lymphocytes 24.9 % (21.0-51.0); %Monocytes 7.2 % (0.0-10.0); %Neutrophils 66.4 % (42.0-75.0); Hemoglobin 16.1 g/dL (14.0-18.0); Mean Corpuscular HGB CONC 32.7 g/dL (32.0-36.0); Mean Corpuscular Hemoglobin 31.9 pg (27.0-31.0); Mean Corpuscular Volume 97.6 fL (78.0-98.0); Platelet Count 265 thou/uL (130-400); RBC Distribution Width 13.1 % (11.5-14.5); Red Blood Cell (RBC) Count 5.06 mill/uL (4.70-6.10); White Blood Cell (WBC) Count 9.5 thou/uL (4.8-10.8)
[2019-03-14 09:30] LABS: Anion Gap 13 mmol/L (10-20); BUN (Urea Nitrogen) 12 mg/dL (8.4-25.7); Calc. Creatinine Clearance 73 mL/min (70-130); Calcium 9.7 mg/dL (7.8-10.44); Carbon Dioxide 24 mmol/L (23-31); Chloride 96 mmol/L (98-107); Estimated GFR-MDRD 89; Glucose 136 mg/dL (83-110); Potassium 3.9 mmol/L (3.5-5.1); Sodium 129 mmol/L (136-145)
[2019-03-14] MEDS: Lisinopril 20 MG TAB PO SCH (10:30)
--- NOTE | 2019-03-14 14:42 | PQF ---
CLINICAL DOCUMENTATION IMPROVEMENT CLARIFICATION FORM: ICD-10 Updated PLEASE DO AN ADDENDUM TO THE PROGRESS NOTE WITH ANY DOCUMENTATION UPDATES OR ADDITIONS AND CARRY THROUGH TO DC SUMMARY. THANK YOU. DATE: 03/14/2019; 03/15/2019; 03/16/2019 ATTN: Dr. Mullins Please exercise your independent, professional judgment in responding to the clarification form. Clinical indicators are provided on the bottom of this form for your review Please check appropriate box(s): [ x ] Hyponatremia [ ] Insignificant lab value [ ] Other diagnosis [ ] Unable to determine In addition, please specify: Present on Admission (POA): [ ] Yes [ x ] No [ ] Unable to determine For continuity of documentation, please document condition throughout progress notes and discharge summary. Thank You. CLINICAL INDICATORS - SIGNS / SYMPTOMS/ LABS are present in the medical record: 03/10/2019 03/12/2019 03/13/2019 LABS: Sodium 134 126 127 PN 03/12: Second degree AV Basilio hernandez type I Hypertension. pt's bp still uncontrolled - will add additional prns. 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 Weakness/multiple falls. PN 03/10:Hypertension. Increase the hydralazine. TREATMENT: Lab Orders for [facility] 03/10, 03/12, 03/13, 03/14, 03/15 MAR: Order 03/10: Hydralazine 50 mg po TID Thank you, Evette (This form is maintained as a part of the permanent medical record) 2014 [employer]. All Rights Reserved Evette Acharya RN, BSN [email or web address] Office: [phone] [facility]
[2019-03-14] MEDS: Ketorolac Tromethamine 30 MG/ML VIAL IVP SCH (16:04)
--- NOTE | 2019-03-14 18:12 | PDOC.PN ---
- Subjective Encounter Start Date: 03/14/19 Encounter Start Time: 11:15 Subjective: pt up in bed complains of pain to his left lumbar area - Objective Resuscitation Status - Order Detail: 03/07/19 21:08 Resuscitation Status Routine Co-Sign Provider: Resuscitation Status: DNAR: NO Resuscitation Discussed with: Family, son has MPOA Vital Signs & Weight: Vital Signs (12 hours) Temp Pulse Resp BP BP BP Pulse Ox 03/14/19 16:04 74 157/67 H 03/14/19 16:00 97.7 F 74 16 157/67 H 93 L 03/14/19 13:06 71 200/81 H 03/14/19 12:45 97.6 F 76 16 200/81 H 96 03/14/19 10:30 197/80 H 03/14/19 08:48 66 178/74 H 03/14/19 08:00 94 L 03/14/19 07:36 97.3 F L 66 16 178/74 H 94 L Weight Weight 179 lb 8 oz I&O: 03/13/19 03/14/19 03/15/19 06:59 06:59 06:59 Intake Total 1050 1200 Output Total 1025 1000 Balance 25 200 Result Diagrams: 03/14/19 09:00 03/14/19 09:00 Phys Exam - Physical Examination Neck: no nodes, no JVD, supple, full ROM Respiratory: no wheezing, no rales, no rhonchi, wheezing present, clear to auscultation bilateral Cardiovascular: RRR, no significant murmur, no rub, gallop, irregular Gastrointestinal: soft, non-tender, no distention, positive bowel sounds Musculoskeletal: no edema, pulses present, edema present Neurological: non-focal, normal sensation, moves all 4 limbs Dx/Plan (1) Second degree AV block, Mobitz type I Code(s): I44.1 - ATRIOVENTRICULAR BLOCK, SECOND DEGREE Status: Acute Comment : Plan for ILR in am, limit AV sanket blocking agents (2) Fall Code(s): W19.XXXA - UNSPECIFIED FALL, INITIAL ENCOUNTER Status: Acute (3) Sciatica Code(s): M54.30 - SCIATICA, UNSPECIFIED SIDE Status: Acute (4) TIA (transient ischemic attack) Code(s): G45.9 - TRANSIENT CEREBRAL ISCHEMIC ATTACK, UNSPECIFIED Status: Acute (5) Hypertension Code(s): I10 - ESSENTIAL (PRIMARY) HYPERTENSION Status: Chronic Qualifiers: Hypertension type: essential hypertension Qualified Code(s): I10 - Essential (primary) hypertension Comment: Labile, serial monitoring, Hydralazine IV PRN, start Hydralazine 25mg TID - Plan pt walked with PT. PT stated that pt has been limping on his left leg -: xray did indicate osteopenia, will start pt on toradol for 3 doses and see -: if this helps. will get left hip xray * . Review of Systems - Review of Systems Cardiovascular: negative: chest pain, palpitations, orthopnea, paroxysmal nocturnal dyspnea, edema, light headedness, other Gastrointestinal: negative: Nausea, Vomiting, Abdominal Pain, Diarrhea, Constipation, Melena, Hematochezia, Other - Medications/Allergies Allergies/Adverse Reactions: Allergies Allergy/AdvReac Type Severity Reaction Status Date / Time Iemdbcf-Kai-Ekd Reductase Allergy Verified 03/07/19 21:17 Inhibitor Medications: Current Medications Acetaminophen (Tylenol) 650 mg PO Q4H PRN PRN Reason: Headache/Fever/Mild Pain (1-3) Last Admin: 03/14/19 08:50 Dose: 650 mg Acetaminophen (Tylenol) 650 mg [place] Q4H PRN PRN Reason: Headache/Fever/Mild Pain (1-3) Amlodipine Besylate (Norvasc) 10 mg PO DAILY [facility] Last Admin: 03/14/19 08:48 Dose: 10 mg Clonidine (Catapres) 0.1 mg PO Q4H PRN PRN Reason: SBP Greater Than 180 Last Admin: 03/13/19 12:28 Dose: 0.1 mg Famotidine (Pepcid) 20 mg PO Q12HR [facility] Last Admin: 03/14/19 08:48 Dose: 20 mg Hydralazine HCl (Apresoline) 10 mg SLOW IVP Q4H PRN PRN Reason: SBP Greater Than 180 Last Admin: 03/11/19 18:43 Dose: 10 mg Hydralazine HCl (Apresoline) 50 mg PO TID [facility] Last Admin: 03/14/19 16:04 Dose: 50 mg Hydralazine HCl (Apresoline) 20 mg SLOW IVP Q6H PRN PRN Reason: Hypertension Last Admin: 03/14/19 13:06 Dose: 20 mg Ketorolac Tromethamine (Toradol) 15 mg IVP 0800,1600,2359 [facility] Stop: 03/15/19 08:01 Last Admin: 03/14/19 16:04 Dose: 15 mg Lisinopril (Zestril) 20 mg PO DAILY [facility] Last Admin: 03/14/19 10:30 Dose: 20 mg Ondansetron HCl (Zofran Odt) 4 mg PO Q6H PRN PRN Reason: Nausea/Vomiting Ondansetron HCl (Zofran) 4 mg IVP Q6H PRN PRN Reason: Nausea/Vomiting Sodium Chloride (Flush - Normal Saline) 10 ml IVF Q12HR PRN PRN Reason: Saline Flush Last Admin: 03/13/19 21:03 Dose: 10 ml Sodium Chloride (Flush - Normal Saline) 10 ml IVF PRN PRN PRN Reason: Saline Flush
--- NOTE | 2019-03-14 19:10 | RAD ---
2 VIEWS LEFT HIP: Date: 03/14/19 COMPARISON: 03/07/19. HISTORY: Fall with left hip pain. FINDINGS: 2 views of the left hip show no evidence of acute fracture or dislocation. No degenerative changes ar e seen. IMPRESSION: Unremarkable exam. POS: C
[2019-03-15] MEDS: Ketorolac Tromethamine 30 MG/ML VIAL IVP SCH ×2 (00:47→09:06)
[2019-03-15 06:20] LABS: #Basophils 0.1 thou/uL (0.0-0.2); #Eosinphils 0.1 thou/uL (0.0-0.7); #Lymphocytes 2.2 thou/uL (1.20-3.40); #Monocytes 0.8 thou/uL (0.11-0.59); %Basophils 0.8 % (0.0-1.0); %Eosinophils 1.4 % (0.0-10.0); %Lymphocytes 26.8 % (21.0-51.0); %Monocytes 9.6 % (0.0-10.0); %Neutrophils 61.5 % (42.0-75.0); Hemoglobin 14.3 g/dL (14.0-18.0); Mean Corpuscular HGB CONC 32.5 g/dL (32.0-36.0); Mean Corpuscular Volume 98.5 fL (78.0-98.0); Mean Platelet Volume 6.9 fL (7.4-10.4); Platelet Count 234 thou/uL (130-400); RBC Distribution Width 12.9 % (11.5-14.5); Red Blood Cell (RBC) Count 4.48 mill/uL (4.70-6.10); White Blood Cell (WBC) Count 8.1 thou/uL (4.8-10.8)
[2019-03-15 06:41] LABS: Anion Gap 11 mmol/L (10-20); BUN (Urea Nitrogen) 15 mg/dL (8.4-25.7); Calc. Creatinine Clearance 65 mL/min (70-130); Calcium 8.6 mg/dL (7.8-10.44); Carbon Dioxide 25 mmol/L (23-31); Chloride 97 mmol/L (98-107); Estimated GFR-MDRD 77; Glucose 108 mg/dL (83-110); Potassium 4.6 mmol/L (3.5-5.1); Sodium 128 mmol/L (136-145)
[2019-03-15] MEDS: Amlodipine 10 MG TAB PO SCH (09:09)
[2019-03-15] MEDS: Lisinopril 20 MG TAB PO SCH (09:09)
[2019-03-15] MEDS: hydrALAZINE 25 MG TAB PO SCH ×3 (09:09→21:57)
[2019-03-15] MEDS: Famotidine 20 MG TAB PO SCH ×2 (09:09→21:57)
--- NOTE | 2019-03-15 16:20 | PDOC.PN ---
- Subjective Encounter Start Date: 03/15/19 Encounter Start Time: 10:45 Subjective: pt up in bed no complains - Objective Resuscitation Status - Order Detail: 03/07/19 21:08 Resuscitation Status Routine Co-Sign Provider: Resuscitation Status: DNAR: NO Resuscitation Discussed with: Family, son has MPOA Vital Signs & Weight: Vital Signs (12 hours) Temp Pulse Pulse Pulse Resp BP BP 03/15/19 15:27 72 72 185/77 H 165/70 H 03/15/19 12:00 97.4 F L 74 18 03/15/19 09:09 72 03/15/19 08:35 97.7 F 72 16 BP Pulse Ox 03/15/19 15:27 03/15/19 12:00 140/67 94 L 03/15/19 09:09 03/15/19 08:35 194/82 H 94 L Weight Weight 181 lb 14.4 oz I&O: 03/14/19 03/15/19 03/16/19 06:59 06:59 06:59 Intake Total 1200 180 480 Output Total 1000 325 Balance 200 -145 480 Result Diagrams: 03/15/19 06:08 03/15/19 06:08 Phys Exam - Physical Examination Respiratory: no wheezing, no rales, no rhonchi, wheezing present, clear to auscultation bilateral Cardiovascular: RRR, no significant murmur, no rub, gallop, irregular Gastrointestinal: soft, non-tender, no distention, positive bowel sounds Musculoskeletal: no edema, pulses present, edema present Dx/Plan (1) Second degree AV block, Mobitz type I Code(s): I44.1 - ATRIOVENTRICULAR BLOCK, SECOND DEGREE Status: Acute Comment : Plan for ILR in am, limit AV sanket blocking agents (2) Fall Code(s): W19.XXXA - UNSPECIFIED FALL, INITIAL ENCOUNTER Status: Acute (3) Sciatica Code(s): M54.30 - SCIATICA, UNSPECIFIED SIDE Status: Acute (4) TIA (transient ischemic attack) Code(s): G45.9 - TRANSIENT CEREBRAL ISCHEMIC ATTACK, UNSPECIFIED Status: Acute (5) Hypertension Code(s): I10 - ESSENTIAL (PRIMARY) HYPERTENSION Status: Chronic Qualifiers: Hypertension type: essential hypertension Qualified Code(s): I10 - Essential (primary) hypertension Comment: Labile, serial monitoring, Hydralazine IV PRN, start Hydralazine 25mg TID - Plan pt up in bed feels well -: his pain has improved -: will wait for PT to walk him to see his his left hip pain -: has improved. Awaiting rehab placement -: bp meds titrated * . Review of Systems - Review of Systems Respiratory: negative: Cough, Dry, Shortness of Breath, Hemoptysis, SOB with Excertion, Pleuritic Pain, Sputum, Wheezing Cardiovascular: negative: chest pain, palpitations, orthopnea, paroxysmal nocturnal dyspnea, edema, light headedness, other Gastrointestinal: negative: Nausea, Vomiting, Abdominal Pain, Diarrhea, Constipation, Melena, Hematochezia, Other - Medications/Allergies Allergies/Adverse Reactions: Allergies Allergy/AdvReac Type Severity Reaction Status Date / Time Hnnrbee-Qwv-Hgm Reductase Allergy Verified 03/07/19 21:17 Inhibitor Medications: Current Medications Acetaminophen (Tylenol) 650 mg PO Q4H PRN PRN Reason: Headache/Fever/Mild Pain (1-3) Last Admin: 03/14/19 08:50 Dose: 650 mg Acetaminophen (Tylenol) 650 mg [place] Q4H PRN PRN Reason: Headache/Fever/Mild Pain (1-3) Amlodipine Besylate (Norvasc) 10 mg PO DAILY [facility] Last Admin: 03/15/19 09:09 Dose: 10 mg Clonidine (Catapres) 0.1 mg PO Q4H PRN PRN Reason: SBP Greater Than 180 Last Admin: 03/13/19 12:28 Dose: 0.1 mg Famotidine (Pepcid) 20 mg PO Q12HR [facility] Last Admin: 03/15/19 09:09 Dose: 20 mg Hydralazine HCl (Apresoline) 10 mg SLOW IVP Q4H PRN PRN Reason: SBP Greater Than 180 Last Admin: 03/11/19 18:43 Dose: 10 mg Hydralazine HCl (Apresoline) 20 mg SLOW IVP Q6H PRN PRN Reason: Hypertension Last Admin: 03/14/19 13:06 Dose: 20 mg Hydralazine HCl (Apresoline) 75 mg PO TID [facility] Last Admin: 03/15/19 09:09 Dose: 75 mg Lisinopril (Zestril) 20 mg PO DAILY [facility] Last Admin: 03/15/19 09:09 Dose: 20 mg Ondansetron HCl (Zofran Odt) 4 mg PO Q6H PRN PRN Reason: Nausea/Vomiting Ondansetron HCl (Zofran) 4 mg IVP Q6H PRN PRN Reason: Nausea/Vomiting Sodium Chloride (Flush - Normal Saline) 10 ml IVF Q12HR PRN PRN Reason: Saline Flush Last Admin: 03/13/19 21:03 Dose: 10 ml Sodium Chloride (Flush - Normal Saline) 10 ml IVF PRN PRN PRN Reason: Saline Flush
[2019-03-15] MEDS: Acetaminophen 325 MG TAB PO PRN (16:35)
[2019-03-15] MEDS: hydrALAZINE 20 MG/ML VIAL SLOW IVP PRN (23:58)
[2019-03-16] MEDS: Acetaminophen 325 MG TAB PO PRN ×3 (06:39→19:50)
[2019-03-16] MEDS: Famotidine 20 MG TAB PO SCH ×2 (09:01→20:49)
[2019-03-16] MEDS: Lisinopril 20 MG TAB PO SCH (09:01)
[2019-03-16] MEDS: Amlodipine 10 MG TAB PO SCH (09:01)
[2019-03-16] MEDS: hydrALAZINE 25 MG TAB PO SCH ×3 (09:01→20:49)
[2019-03-16] MEDS: Ketorolac Tromethamine 30 MG/ML VIAL IVP SCH (18:08)
--- NOTE | 2019-03-16 22:56 | PDOC.PN ---
- Subjective Encounter Start Date: 03/16/19 Encounter Start Time: 12:45 Subjective: pt up in bed son at bedside -: worked with PT some pain to his right hip -: per PT not his left hip - Objective Resuscitation Status - Order Detail: 03/07/19 21:08 Resuscitation Status Routine Co-Sign Provider: Resuscitation Status: DNAR: NO Resuscitation Discussed with: Family, son has MPOA Vital Signs & Weight: Vital Signs (12 hours) Temp Pulse Pulse Pulse Resp BP BP 03/16/19 20:49 71 150/67 H 03/16/19 19:51 97.4 F L 71 18 03/16/19 16:00 98.4 F 65 18 03/16/19 14:00 70 71 205/83 H 03/16/19 13:40 63 03/16/19 12:00 98.2 F 63 18 BP BP Pulse Ox 03/16/19 20:49 03/16/19 19:51 150/67 H 94 L 03/16/19 16:00 164/58 H 96 03/16/19 14:00 189/75 H 03/16/19 13:40 03/16/19 12:00 150/52 H 94 L Weight Weight 181 lb 14.4 oz I&O: 03/15/19 03/16/19 03/17/19 06:59 06:59 06:59 Intake Total 180 1220 750 Output Total 325 3120 500 Balance -145 -1900 250 Result Diagrams: 03/15/19 06:08 03/15/19 06:08 Phys Exam - Physical Examination Neck: no nodes, no JVD, supple, full ROM Respiratory: no wheezing, no rales, no rhonchi, wheezing present, clear to auscultation bilateral Cardiovascular: RRR, no significant murmur, no rub, gallop, irregular Gastrointestinal: soft, non-tender, no distention, positive bowel sounds Dx/Plan (1) Second degree AV block, Mobitz type I Code(s): I44.1 - ATRIOVENTRICULAR BLOCK, SECOND DEGREE Status: Acute Comment : Plan for ILR in am, limit AV sanket blocking agents (2) Fall Code(s): W19.XXXA - UNSPECIFIED FALL, INITIAL ENCOUNTER Status: Acute (3) Sciatica Code(s): M54.30 - SCIATICA, UNSPECIFIED SIDE Status: Acute (4) TIA (transient ischemic attack) Code(s): G45.9 - TRANSIENT CEREBRAL ISCHEMIC ATTACK, UNSPECIFIED Status: Acute (5) Hypertension Code(s): I10 - ESSENTIAL (PRIMARY) HYPERTENSION Status: Chronic Qualifiers: Hypertension type: essential hypertension Qualified Code(s): I10 - Essential (primary) hypertension Comment: Labile, serial monitoring, Hydralazine IV PRN, start Hydralazine 25mg TID - Plan pt has loop recorder, spoke with son who stated -: that his bill for 2months for his supplements was 1000$ -: pt was on NO and lithium -: pt's bp liable. i have put him on toradol for 4 doses to see if his -: his pain improves. Awaiting placement * . Review of Systems - Review of Systems Respiratory: negative: Cough, Dry, Shortness of Breath, Hemoptysis, SOB with Excertion, Pleuritic Pain, Sputum, Wheezing Cardiovascular: negative: chest pain, palpitations, orthopnea, paroxysmal nocturnal dyspnea, edema, light headedness, other - Medications/Allergies Allergies/Adverse Reactions: Allergies Allergy/AdvReac Type Severity Reaction Status Date / Time Ntwmiic-Udf-Bxd Reductase Allergy Verified 03/07/19 21:17 Inhibitor Medications: Current Medications Acetaminophen (Tylenol) 650 mg PO Q4H PRN PRN Reason: Headache/Fever/Mild Pain (1-3) Last Admin: 03/16/19 19:50 Dose: 650 mg Acetaminophen (Tylenol) 650 mg UT Q4H PRN PRN Reason: Headache/Fever/Mild Pain (1-3) Amlodipine Besylate (Norvasc) 10 mg PO DAILY [facility] Last Admin: 03/16/19 09:01 Dose: 10 mg Clonidine (Catapres) 0.1 mg PO Q4H PRN PRN Reason: SBP Greater Than 180 Last Admin: 03/13/19 12:28 Dose: 0.1 mg Famotidine (Pepcid) 20 mg PO Q12HR [facility] Last Admin: 03/16/19 20:49 Dose: 20 mg Hydralazine HCl (Apresoline) 10 mg SLOW IVP Q4H PRN PRN Reason: SBP Greater Than 180 Last Admin: 03/15/19 23:58 Dose: 10 mg Hydralazine HCl (Apresoline) 20 mg SLOW IVP Q6H PRN PRN Reason: Hypertension Last Admin: 03/14/19 13:06 Dose: 20 mg Hydralazine HCl (Apresoline) 75 mg PO TID [facility] Last Admin: 03/16/19 20:49 Dose: 75 mg Ketorolac Tromethamine (Toradol) 15 mg IVP Q6HR [facility] Stop: 03/17/19 12:01 Last Admin: 03/16/19 18:08 Dose: 15 mg Lisinopril (Zestril) 20 mg PO DAILY [facility] Last Admin: 03/16/19 09:01 Dose: 20 mg Ondansetron HCl (Zofran Odt) 4 mg PO Q6H PRN PRN Reason: Nausea/Vomiting Ondansetron HCl (Zofran) 4 mg IVP Q6H PRN PRN Reason: Nausea/Vomiting Sodium Chloride (Flush - Normal Saline) 10 ml IVF Q12HR PRN PRN Reason: Saline Flush Last Admin: 03/13/19 21:03 Dose: 10 ml Sodium Chloride (Flush - Normal Saline) 10 ml IVF PRN PRN PRN Reason: Saline Flush
[2019-03-17] MEDS: Ketorolac Tromethamine 30 MG/ML VIAL IVP SCH ×3 (00:33→15:58)
[2019-03-17] MEDS: Acetaminophen 325 MG TAB PO PRN ×4 (04:24→21:16)
[2019-03-17] MEDS: Lisinopril 20 MG TAB PO SCH (09:20)
[2019-03-17] MEDS: hydrALAZINE 25 MG TAB PO SCH ×3 (09:20→21:14)
[2019-03-17] MEDS: Amlodipine 10 MG TAB PO SCH (09:21)
[2019-03-17] MEDS: Famotidine 20 MG TAB PO SCH ×2 (09:21→21:16)
--- NOTE | 2019-03-17 09:36 | PDOC.PN ---
- Subjective Encounter Start Date: 03/17/19 Encounter Start Time: 09:33 Feels ok. Says he continues to have some discomfort in the left hip which he believes is sciatica. No other complaints. - Objective Resuscitation Status - Order Detail: 03/07/19 21:08 Resuscitation Status Routine Co-Sign Provider: Resuscitation Status: DNAR: NO Resuscitation Discussed with: Family, son has MPOA Vital Signs & Weight: Vital Signs (12 hours) Temp Pulse Resp BP BP BP Pulse Ox 03/17/19 09:21 62 03/17/19 09:20 62 150/67 H 03/17/19 08:00 97.9 F 62 18 175/74 H 95 03/17/19 04:00 98.2 F 67 18 142/65 H 95 Weight Weight 181 lb 14.4 oz I&O: 03/16/19 03/17/19 03/18/19 06:59 06:59 06:59 Intake Total 1220 1110 Output Total 3120 1000 Balance -1900 110 Result Diagrams: 03/15/19 06:08 03/15/19 06:08 Phys Exam - Physical Examination Constitutional: NAD Respiratory: no wheezing, no rales, no rhonchi, clear to auscultation bilateral Cardiovascular: RRR Frequent ectopy, bigem. Gastrointestinal: soft, non-tender, no distention, positive bowel sounds Musculoskeletal: no edema Neurological: non-focal Psychiatric: normal affect Dx/Plan (1) Second degree AV block, Mobitz type I Code(s): I44.1 - ATRIOVENTRICULAR BLOCK, SECOND DEGREE Status: Acute Comment : Plan for ILR in am, limit AV sanket blocking agents (2) Sciatica Code(s): M54.30 - SCIATICA, UNSPECIFIED SIDE Status: Acute (3) Fall Code(s): W19.XXXA - UNSPECIFIED FALL, INITIAL ENCOUNTER Status: Acute (4) Hypertension Code(s): I10 - ESSENTIAL (PRIMARY) HYPERTENSION Status: Chronic Qualifiers: Hypertension type: essential hypertension Qualified Code(s): I10 - Essential (primary) hypertension Comment: Labile, serial monitoring, Hydralazine IV PRN, start Hydralazine 25mg TID (5) Weakness Code(s): R53.1 - WEAKNESS Status: Chronic Comment: Suspect chronic, PT for functional assessment, fall risk precautions - Plan * BP generally improved. Not perfect, but adequate control. * He has a history of resistance to prescribed antihypertensives and favoring multiple supplements. * Unclear whether he will adhere to the meds once DC'd. * Continue PT. Encouraged him to work with PT to improve the sciatica and strength. * [facility]HONATHAN TRAVIS. Working on placement.
[2019-03-17] MEDS ORDERED: Ketorolac Tromethamine 30 MG/ML VIAL IVP SCH (15:00)
[2019-03-17] MEDS ORDERED: Ketorolac Tromethamine 60 MG/2 ML VIAL IM SCH (15:15)
[2019-03-17] MEDS: cloNIDine 0.1 MG TAB PO PRN (17:28)
[2019-03-18] MEDS: Acetaminophen 325 MG TAB PO PRN ×2 (04:42→17:41)
[2019-03-18] MEDS: Famotidine 20 MG TAB PO SCH ×2 (09:01→21:05)
[2019-03-18] MEDS: Amlodipine 10 MG TAB PO SCH (09:01)
[2019-03-18] MEDS: Lisinopril 20 MG TAB PO SCH (09:01)
[2019-03-18] MEDS: hydrALAZINE 25 MG TAB PO SCH ×3 (09:01→21:04)
--- NOTE | 2019-03-18 10:58 | PDOC.PN ---
- Subjective Encounter Start Date: 03/18/19 Encounter Start Time: 10:56 Doing fine. NO complaints. Working on AL placement now. - Objective Resuscitation Status - Order Detail: 03/07/19 21:08 Resuscitation Status Routine Co-Sign Provider: Resuscitation Status: DNAR: NO Resuscitation Discussed with: Family, son has MPOA Vital Signs & Weight: Vital Signs (12 hours) Temp Pulse Resp BP BP Pulse Ox 03/18/19 09:01 46 L 160/69 H 03/18/19 06:53 98.1 F 46 L 16 185/78 H 94 L 03/18/19 04:00 98.2 F 51 L 16 160/67 H 96 03/17/19 23:35 98.1 F 47 L 16 150/66 H 95 Weight Weight 181 lb 14.4 oz I&O: 03/17/19 03/18/19 03/19/19 06:59 06:59 06:59 Intake Total 1110 1080 Output Total 1000 550 Balance 110 530 Result Diagrams: 03/15/19 06:08 03/15/19 06:08 Phys Exam - Physical Examination Constitutional: NAD Respiratory: no wheezing, no rales, no rhonchi Cardiovascular: RRR, no significant murmur, no rub Gastrointestinal: soft, non-tender, no distention Musculoskeletal: no edema Psychiatric: normal affect Dx/Plan (1) Second degree AV block, Mobitz type I Code(s): I44.1 - ATRIOVENTRICULAR BLOCK, SECOND DEGREE Status: Acute Comment : Plan for ILR in am, limit AV sanket blocking agents (2) Sciatica Code(s): M54.30 - SCIATICA, UNSPECIFIED SIDE Status: Acute (3) Fall Code(s): W19.XXXA - UNSPECIFIED FALL, INITIAL ENCOUNTER Status: Acute (4) Hypertension Code(s): I10 - ESSENTIAL (PRIMARY) HYPERTENSION Status: Chronic Qualifiers: Hypertension type: essential hypertension Qualified Code(s): I10 - Essential (primary) hypertension Comment: Labile, serial monitoring, Hydralazine IV PRN, start Hydralazine 25mg TID (5) Weakness Code(s): R53.1 - WEAKNESS Status: Chronic Comment: Suspect chronic, PT for functional assessment, fall risk precautions - Plan * Doing well. * AL placement process. Stable for DC anytime. * BP adequate. * HR normal now. Suspect machine is not accurately counting his HR. Has bigem at times.
[2019-03-18 15:14] VITALS: BMI 23.3
[2019-03-19] MEDS: Famotidine 20 MG TAB PO SCH ×2 (08:40→20:03)
[2019-03-19] MEDS: Lisinopril 20 MG TAB PO SCH (08:40)
[2019-03-19] MEDS: hydrALAZINE 25 MG TAB PO SCH ×3 (08:42→20:01)
[2019-03-19] MEDS: Amlodipine 10 MG TAB PO SCH (08:42)
[2019-03-19] MEDS: Acetaminophen 325 MG TAB PO PRN ×2 (08:48→18:33)
--- NOTE | 2019-03-19 15:54 | PDOC.PN ---
- Subjective Encounter Start Date: 03/19/19 Encounter Start Time: 09:50 Still doing well. Continues to have some pain in the left hip/buttock. - Objective Resuscitation Status - Order Detail: 03/07/19 21:08 Resuscitation Status Routine Co-Sign Provider: Resuscitation Status: DNAR: NO Resuscitation Discussed with: Family, son has MPOA Vital Signs & Weight: Vital Signs (12 hours) Temp Pulse Resp BP BP BP Pulse Ox 03/19/19 08:42 62 178/56 H 03/19/19 08:40 178/56 H 03/19/19 08:00 98.4 F 62 18 178/56 H 95 03/19/19 04:00 97.8 F 45 L 16 167/89 H 97 Weight Admit Weight 190 lb Weight 181 lb 14.4 oz I&O: 03/18/19 03/19/19 03/20/19 06:59 06:59 06:59 Intake Total 1080 720 Output Total 287 041 7912 Balance 530 320 -1225 Result Diagrams: 03/15/19 06:08 03/15/19 06:08 Phys Exam - Physical Examination Constitutional: NAD Respiratory: no wheezing, no rales, no rhonchi Cardiovascular: RRR, no significant murmur Gastrointestinal: soft, non-tender, no distention Musculoskeletal: no edema Dx/Plan (1) Second degree AV block, Mobitz type I Code(s): I44.1 - ATRIOVENTRICULAR BLOCK, SECOND DEGREE Status: Acute Comment : Plan for ILR in am, limit AV sanket blocking agents (2) Sciatica Code(s): M54.30 - SCIATICA, UNSPECIFIED SIDE Status: Acute (3) Fall Code(s): W19.XXXA - UNSPECIFIED FALL, INITIAL ENCOUNTER Status: Acute (4) Hypertension Code(s): I10 - ESSENTIAL (PRIMARY) HYPERTENSION Status: Chronic Qualifiers: Hypertension type: essential hypertension Qualified Code(s): I10 - Essential (primary) hypertension Comment: Labile, serial monitoring, Hydralazine IV PRN, start Hydralazine 25mg TID (5) Weakness Code(s): R53.1 - WEAKNESS Status: Chronic Comment: Suspect chronic, PT for functional assessment, fall risk precautions - Plan * Stable. * Awaiting AL placement. * His BP is variable, but generally high. On three good meds with high doses. Adding more at this point will not likely be of much benefit. He is somewhat resistant to anti-hypertensives in general and prefers supplements. * Continue PT.
[2019-03-20] MEDS: Acetaminophen 325 MG TAB PO PRN (07:56)
[2019-03-20] MEDS: Amlodipine 10 MG TAB PO SCH (07:57)
[2019-03-20] MEDS: hydrALAZINE 25 MG TAB PO SCH ×3 (07:57→21:26)
[2019-03-20] MEDS: Lisinopril 20 MG TAB PO SCH (07:57)
[2019-03-20] MEDS: Famotidine 20 MG TAB PO SCH ×2 (08:30→21:26)
--- NOTE | 2019-03-20 15:15 | PDOC.PN ---
- Subjective Encounter Start Date: 03/20/19 Encounter Start Time: 09:30 Doing well. Says watching the news on TV is bringing back a lot of memories for him from his time in the . No new complaints. Still has some discomfort with the left sciatica. - Objective Resuscitation Status - Order Detail: 03/07/19 21:08 Resuscitation Status Routine Co-Sign Provider: Resuscitation Status: DNAR: NO Resuscitation Discussed with: Family, son has MPOA Vital Signs & Weight: Vital Signs (12 hours) Temp Pulse Resp BP BP BP Pulse Ox 03/20/19 14:19 62 158/52 H 03/20/19 12:00 152/67 H 03/20/19 08:00 95 03/20/19 07:57 62 158/52 H 03/20/19 07:30 98.2 F 67 18 178/65 H 95 Weight Admit Weight 190 lb Weight 181 lb 14.4 oz I&O: 03/19/19 03/20/19 03/21/19 06:59 06:59 06:59 Intake Total 720 960 238 Output Total 400 3275 Balance 320 -2315 238 Result Diagrams: 03/15/19 06:08 03/15/19 06:08 Phys Exam - Physical Examination Constitutional: NAD Respiratory: no wheezing, no rales, no rhonchi Cardiovascular: RRR, no significant murmur Gastrointestinal: soft, non-tender, no distention Musculoskeletal: no edema Neurological: non-focal Psychiatric: normal affect, A&O x 3 Skin: no rash Dx/Plan (1) Second degree AV block, Mobitz type I Code(s): I44.1 - ATRIOVENTRICULAR BLOCK, SECOND DEGREE Status: Acute Comment : Implanted loop recorder this admission (2) Sciatica Code(s): M54.30 - SCIATICA, UNSPECIFIED SIDE Status: Acute Comment: Continue PT (3) Fall Code(s): W19.XXXA - UNSPECIFIED FALL, INITIAL ENCOUNTER Status: Acute (4) Hypertension Code(s): I10 - ESSENTIAL (PRIMARY) HYPERTENSION Status: Chronic Qualifiers: Hypertension type: essential hypertension Qualified Code(s): I10 - Essential (primary) hypertension Comment: Several good meds at good dosing. Patient resistant to rx meds and prefers supplements. Very unlikely to remain compliant with meds after discharge per family. Will not add new meds. Adequate control. (5) Weakness Code(s): R53.1 - WEAKNESS Status: Chronic Comment: Suspect chronic, PT for functional assessment, fall risk precautions - Plan * Still awaiting insurance approval and placement. * Continue PT.
[2019-03-21] MEDS: Amlodipine 10 MG TAB PO SCH (08:23)
[2019-03-21] MEDS: hydrALAZINE 25 MG TAB PO SCH ×2 (08:24→15:39)
[2019-03-21] MEDS: Famotidine 20 MG TAB PO SCH (08:24)
[2019-03-21] MEDS: Acetaminophen 325 MG TAB PO PRN (08:26)
[2019-03-21] MEDS: Lisinopril 20 MG TAB PO SCH (08:26)
[2019-03-21 11:50] VITALS: TEMP 97.9
--- NOTE | 2019-03-21 15:05 | DIS ---
DATE OF ADMISSION: 03/07/2019 DATE OF DISCHARGE: 03/21/2019 DISCHARGE DISPOSITION: To half-way facility. DISCHARGE DIAGNOSES: 1. Second-degree atrioventricular block. 2. Hypertension. 3. Frequent falls. 4. Generalized weakness. DISCHARGE MEDICATIONS: Include; 1. Amlodipine 10 mg daily. 2. Pepcid 20 mg twice daily. 3. Hydralazine 75 mg t.i.d. 4. Lisinopril 20 mg daily. PROCEDURES DONE DURING ADMISSION: The patient had a lower extremity MRI showing no acute injury. The patient also had a CT scan of the brain showing no acute intracranial process was demonstrated. The patient also had an x-ray of the lumbar spine showing some bone demineralization and multilevel spondylosis with minimal grade 1 anterolisthesis of L5 on S1. CODE STATUS: DNR. ALLERGIES: TO STATINS. HOSPITAL COURSE: Mr. Newell is a pleasant 88-year-old gentleman, who was admitted to the hospital after having frequent falls. He was evaluated in the ER and had MRI of the lower extremities and this was negative for any fracture or lytic lesions. He was seen by Cardiology due to some concerns for bradycardia. He was evaluated and found to have a second-degree AV block, but this was not considered to be causing his symptoms and a loop recorder was replaced. This was to help to evaluate if he had any other arrhythmic problems, which could be contributing to his symptoms. He was fairly severely deconditioned and for this reason, arrangements were made for him to be discharged to the half-way facility for further PT and OT. Job ID: [id number]
[2019-03-21 15:39] VITALS: BP 139/66
== END 2019-03-21 16:04 | DRG 261 ==
LOC: ERS 11:59 → OBSVTOIN 20:45 → 2NO 20:45 → ONC 03-15 21:12
PROVIDERS: ADMIT Internal Medicine; ATTEND Internal Medicine
PROC: 0JH632Z Insertion of Monitoring Device into Chest Subcutaneous Tissue and Fascia, Percutaneous Approach (ICD-10-PCS; principal; 2019-03-10)
DX: I44.1 Atrioventricular block, second degree (principal); G45.9 Transient cerebral ischemic attack, unspecified; E87.1 Hypo-osmolality and hyponatremia; I16.0 Hypertensive urgency; G89.29 Other chronic pain; M54.5 Low back pain; Z66 Do not resuscitate; I10 Essential (primary) hypertension; I45.10 Unspecified right bundle-branch block; I48.91 Unspecified atrial fibrillation; I49.9 Cardiac arrhythmia, unspecified; E87.6 Hypokalemia; M54.30 Sciatica, unspecified side; R29.6 Repeated falls; Z86.73 Personal history of transient ischemic attack (TIA), and cerebral infarction without residual deficits; Z85.828 Personal history of other malignant neoplasm of skin; Z88.8 Allergy status to other drugs, medicaments and biological substances
CPT/HCPCS: 33285; 36415; 70450; 71045; 72100; 80048; 80053; 81003; 81015; 82550; 83735; 83880; 83930; 83935; 84300; 85025; 85652; 86140; 93005; 93010; 93306; C1764; J0360; J1885; J2001; S0028

== ENCOUNTER 2019-10-04 11:52 | Outpatient (CLI) | payer MEDICARE, OTHER ==
--- NOTE | 2019-10-04 12:23 | RAD ---
EXAM: Two views chest PROVIDED CLINICAL HISTORY: Post placement of implantable loop recorder. COMPARISON: 03/07/2019 FINDINGS: Cardiac silhouette is enlarged. Pulmonary vasculature is within normal limits. Again noted is elevati on left hemidiaphragm with findings which appear to represent a large hiatal hernia in association with elevated left hemidiaphragm. Parenchymal changes in the left midlung zone have improved with per sistent interstitial densities present. Findings may be related to residual scarring on the current study. Blunting of the right lateral costophrenic angle is present probably related to tiny right ple ural effusion and atelectasis. Blunting of the left lateral costophrenic angle may related to pleural and parenchymal scarring. No radiopaque or metallic density is seen to correspond to reported placement of a loop recording dev ice. Degenerative changes are again seen in the spine. There is gas density seen in the retrocardiac region with elevation of the left hemidiaphragm confines are likely related to a hiatal hernia. IMPRESSION: 1. No radiopaque or metallic foreign body is seen to suggest placement of a loop recording device bas ed on this exam. 2. Large hiatal hernia with elevation left hemidiaphragm. There are pleural and parenchymal changes a t the left lung base which may be related to pleural and parenchymal scarring. 3. Tiny right pleural effusion.
== END 2019-10-04 11:53 | disposition home or self-care (01) ==
LOC: RAD 11:52
PROVIDERS: ATTEND Physician Assistant
DX: Z45.09 Encounter for adjustment and management of other cardiac device (principal); K44.9 Diaphragmatic hernia without obstruction or gangrene; J90 Pleural effusion, not elsewhere classified; Z95.818 Presence of other cardiac implants and grafts
CPT/HCPCS: 71046

== ENCOUNTER 2019-11-04 09:15 | Outpatient (CLI) | payer MEDICARE, OTHER ==
--- NOTE | 2019-11-04 09:45 | RAD ---
2 views of abdomen: 11/04/2019 COMPARISON: None HISTORY: Evaluate Loop recorder FINDINGS: There are 2 linear metallic densities overlying the pelvis, one overlying the superior aspe ct of the left sacroiliac joint and one overlying the rectum. Etiology is uncertain. These may be external to the patient. They measure 2.9 cm in length each. They do not represent a Loop recorder. Upright imaging demonstrates no free intraperitoneal air. The bowel gas pattern is nonobstructed. The re is dense opacity in the left lung base which suggests nonspecific left pulmonary parenchymal opacity and left pleural fluid. Dedicated radiograph of chest advised. IMPRESSION: 2V examination of the abdomen as described above.
== END 2019-11-04 09:16 | disposition home or self-care (01) ==
LOC: BICRAD 09:15
PROVIDERS: ATTEND Internal Medicine Cardiovascular Disease
DX: Z48.812 Encounter for surgical aftercare following surgery on the circulatory system (principal); R93.5 Abnormal findings on diagnostic imaging of other abdominal regions, including retroperitoneum; Z95.818 Presence of other cardiac implants and grafts
CPT/HCPCS: 74019

== ENCOUNTER 2019-12-12 23:48 | Inpatient (IN) | payer MEDICARE, OTHER ==
[2019-12-13 00:20] LABS: #Lymphocytes 1.2 thou/uL (1.20-3.40); #Monocytes 0.6 thou/uL (0.11-0.59); #Neutrophils 8.4 thou/uL (1.40-6.50); %Basophils 0.2 % (0.0-1.0); %Eosinophils 0.4 % (0.0-10.0); %Lymphocytes 11.5 % (21.0-51.0); %Monocytes 5.5 % (0.0-10.0); %Neutrophils 82.4 % (42.0-75.0); Hemoglobin 13.4 g/dL (14.0-18.0); Mean Corpuscular HGB CONC 32.5 g/dL (32.0-36.0); Mean Corpuscular Hemoglobin 30.6 pg (27.0-31.0); Mean Corpuscular Volume 94.3 fL (78.0-98.0); Platelet Count 269 thou/uL (130-400); Red Blood Cell (RBC) Count 4.37 mill/uL (4.70-6.10); White Blood Cell (WBC) Count 10.2 thou/uL (4.8-10.8)
[2019-12-13 00:44] LABS: ALT (SGPT) 15 U/L (8-55); AST (SGOT) 21 U/L (5-34); Albumin 3.4 g/dL (3.4-4.8); Alkaline Phosphatase 227 U/L (40-110); Anion Gap 15 mmol/L (10-20); BUN (Urea Nitrogen) 19 mg/dL (8.4-25.7); Bilirubin, Total 0.8 mg/dL (0.2-1.2); CK (CPK) 322 U/L (30-200); Calc. Creatinine Clearance 0 mL/min (70-130); Calcium 8.4 mg/dL (7.8-10.44); Carbon Dioxide 26 mmol/L (23-31); Chloride 98 mmol/L (98-107); Estimated GFR-MDRD 85; Globulin 2.4 g/dL (2.4-3.5); Glucose 150 mg/dL (83-110); Potassium 3.7 mmol/L (3.5-5.1); Protein, Total 5.8 g/dL (5.8-8.1); Sodium 135 mmol/L (136-145)
[2019-12-13 02:01] LABS: Bacteria/HPF 1+ HPF (None Seen); Bilirubin Negative (Negative); Blood, Urine 1+ (Negative); Clarity Turbid (Clear); Glucose, Urine (Dipstick) Normal (Negative); Leukocyte 500 Leu/uL (Negative); Nitrite Negative (Negative); Protein, Urine (Dipstick) 100 mg/dL (Neg-Trace); Squamous Epithelial None Seen HPF (0-3); Urobilinogen Normal mg/dL (Less than 2); WBC/HPF Greater than 50 HPF (0-3)
[2019-12-13] MEDS ORDERED: cefTRIAXone\\ROCEPHIN 2 GM VIAL ONE (02:20)
[2019-12-13 02:43] LABS: Troponin I 0.026 ng/mL (< 0.028)
[2019-12-13 03:45] VITALS: BMI 22.3
[2019-12-13] MEDS: hydrALAZINE 20 MG/ML VIAL SLOW IVP PRN ×2 (06:33→10:50)
[2019-12-13] MEDS ORDERED: Acetaminophen 325 MG TAB PO PRN (06:49)
[2019-12-13] MEDS ORDERED: Ondansetron PF 4 MG/2 ML Vial IVP PRN (06:49)
[2019-12-13] MEDS ORDERED: Ondansetron ODT 4 MG TAB PO PRN (06:49)
[2019-12-13] MEDS ORDERED: Calcium Carbonate 500 MG ChewTAB PO PRN (06:49)
[2019-12-13] MEDS ORDERED: Sodium Chloride 0.9% 1,000 ML IV SCH (07:00)
--- NOTE | 2019-12-13 07:21 | CT ---
PRELIMINARY REPORT/[facility]/EMERGENCY AFTER HOURS PROCEDURE EXAM: CT Head Without Intravenous Contrast. CLINICAL HISTORY: Pt presents for unwitnessed fall with head injury. [facility] staff reported to EMS that pt has been altered for several days. He is usually A&OX4, but has only been oriented X 2 for several days. When staff went into pt room to check on him this evening, he was found on the ground with blood surroundi ng his head. EMS reports that the blood was largely clotted and/or dried. EMS concerned that pt was lying in the floor for a long time. TECHNIQUE: Axial computed tomography images of the head/brain without intravenous contrast. COMPARISON: 03/07/2019. FINDINGS: BRAIN: No acute intraparenchymal hemorrhage. No mass lesion. Geographic region of hypodensity in the left o ccipital lobe. The associated cortices appear hyperdense. No midline shift or extra-axial collection. Mild prominence of the sulci and ventricles. Moderate subcortical and periventricular w jaret matter hypodensities. Arteriosclerosis. VENTRICLES: No hydrocephalus. ORBITS: The orbits are unremarkable. SINUSES AND MASTOIDS: Mucosal thickening of the ethmoid air cells and bilateral maxillary sinuses with bilateral maxillary antrectomies. The mastoid air cells are clear. SOFT TISSUES: Right frontal scalp hematoma. No radiopaque foreign body is seen. BONES: No acute skull fracture. IMPRESSION: Right frontal scalp hematoma with no acute traumatic intracranial abnormality. Geographic region of hypodensity with hyperdense cortices in the left occipital lobe. The findings a re most consistent with a subacute infarction. Clinical correlation is recommended to exclude an acute infarct and an MRI is recommended if clinical indicated. Mild generalized cerebral atrophy. Moderate subcortical and periventricular white matter change like ly related to chronic ischemic small vessel disease. Inflammatory changes in the ethmoid air cells and bilateral maxillary sinuses with bilateral maxillar y antrectomies. ELECTRONICALLY SIGNED BY: Orlin Lozada MD Dec 13, 2019 12:57:55 AM CDT This report is intended for review by the ordering physician only, in accordance of law. If you recei ve this report in error, please call [facility] at [phone]. FINAL REPORT Exam: Head CT without contrast HISTORY: Pain. Injury. Unwitnessed fall. COMPARISON: 03/07/2019 FINDINGS: Hemorrhage: No intraparenchymal hemorrhage or extra-axial hematoma. Brain parenchyma: Loss of lei-white matter differentiation involving the medial left occipital lobe. Otherwise, remaining cerebral portal lei-white matter differentiation is preserved. No mass effect or midline shift. Basilar cisterns are patent.Chronic small vessel ischemic changes of the whi te matter. Ventricular system: Ventricles and sulci are patent and symmetric. Calvarium: Intact. Right frontal scalp hematoma. Sinuses and mastoid air cells: Evidence of previous sinonasal surgery. IMPRESSION: 1. Report is in agreement with initial report by [facility] 2. Left occipital lobe subacute infarct. 3. No intracranial posttraumatic sequelae. Right frontal scalp hematoma. Transcribed Date/Time: 12/13/2019 7:25 AM
--- NOTE | 2019-12-13 07:23 | CT ---
PRELIMINARY REPORT/[facility]/EMERGENCY AFTER HOURS PROCEDURE EXAM: CT Maxillofacial Without Intravenous Contrast. CLINICAL HISTORY: Pt presents for unwitnessed fall with head injury. [facility] staff reported to EMS that pt has been altered for several days. He is usually A&OX4, but has only been oriented X 2 for several days. When staff went into pt room to check on him this evening, he was found on the ground with blood surroundi ng his head. EMS reports that the blood was largely clotted and/or dried. EMS concerned that pt was lying in the floor for a long time. TECHNIQUE: Axial computed tomography images of the face without intravenous contrast. Sagittal and coronal refor mations performed. CONTRAST: Without COMPARISON: None provided. FINDINGS: BONES: No acute fracture or focal osseous lesion. The mandible is intact. SOFT TISSUES: Right frontal scalp hematoma with soft tissue emphysema. Right periorbital swelling. SINUSES: Mucosal thickening of the bilateral maxillary sinuses and ethmoid air cells. Bilateral maxillary ant rectomies. ORBITS: The orbits are normal. No retrobulbar hematoma or mass. IMPRESSION: Right frontal scalp hematoma and right periorbital swelling. No acute maxillofacial fracture. Inflammatory changes in the ethmoid air cells and bilateral maxillary sinuses with bilateral maxillar y antrectomies. ELECTRONICALLY SIGNED BY: Orlin Lozada MD Dec 13, 2019 1:02:41 AM CDT This report is intended for review by the ordering physician only, in accordance of law. If you recei ve this report in error, please call [facility] at [phone]. FINAL REPORT Exam: Maxillofacial CT without contrast HISTORY: Trauma. Pain. FINDINGS: Right frontal scalp hematoma. Subcutaneous emphysema due to soft tissue laceration. Right periorbital hematoma. Bilateral ocular lens implants are appropriately located. Both globes are intact. Retrobulbar fat is preserved. Symmetric attenuation the optic nerves and ocular rectus muscles. Mild mucosal thickening of the visualized paranasal sinuses. There is evidence of previous bilateral fundoscopic sinonasal surgery. Nonspecific hypodensities involving both nasal passages. No maxillofacial fracture. IMPRESSION: 1. This report is in agreement with initial report by [facility]. 2. Right frontal scalp hematoma. Right periorbital hematoma. 3. Chronic changes and postsurgical changes involving paranasal sinuses. 4. No maxillofacial fracture. Transcribed Date/Time: 12/13/2019 7:28 AM
--- NOTE | 2019-12-13 07:27 | RAD ---
Exam: Chest one view HISTORY:Fall. Pain. Injury. Comparison: 03/07/2019 FINDINGS: Cardiac silhouette:Cardiomegaly Aorta: Unremarkable Pulmonary vessels: Mildly prominent Costophrenic angles: Bilateral pleural effusions. LUNGS: Bibasilar interstitial and alveolar opacities. Pneumothorax: None Osseous abnormalities: None IMPRESSION: 1. Congestive heart failure. Superimposed bibasilar atelectasis, aspiration and or pneumonia can't be excluded.
--- NOTE | 2019-12-13 07:36 | CT ---
PRELIMINARY REPORT/[facility]/EMERGENCY AFTER HOURS PROCEDURE: EXAM: CT Cervical Spine Without Intravenous Contrast. CLINICAL HISTORY: Pt presents for unwitnessed fall with head injury. [facility] staff reported to EMS that pt has been altered for several days. He is usually A&OX4, but has only been oriented X 2 for several days. When staff we nt into pt room to check on him this evening, he was found on the ground with blood surrounding his h ead. EMS reports that the blood was largely clotted and/or dried. EMS concerned that pt was lying in the floor for a long time. TECHNIQUE: Axial computed tomography images of the cervical spine without intravenous contrast. Sagittal and cor onal reformations performed. COMPARISON: None provided. FINDINGS: BONES: No acute fracture or focal osseous lesion. Bony alignment is anatomic. The bones are osteopenic. 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 Multilevel facet spondylosis. Severe left-sided foraminal stenosis at C2-C3. Severe bilateral foraminal stenosis at C3-C4. Severe bilateral foraminal stenosis at C4-C5. Severe bilateral foraminal stenosis at C5-C6. Moderate cent ral stenosis with severe bilateral foraminal stenosis at C6-C7. Severe right-sided foraminal stenosi s at C7-T1. SOFT TISSUES: No prevertebral soft tissue swelling. No apical pneumothorax. IMPRESSION: No acute cervical spine abnormality. 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 Multilevel foraminal stenosis, severe at se veral levels. Moderate central stenosis at C6-C7. ELECTRONICALLY SIGNED BY: Orlin Lozada MD Dec 13, 2019 1:00:08 AM CDT This report is intended for review by the ordering physician only, in accordance of law. If you recei ve this report in error, please call [facility] at [phone]. FINAL REPORT CT CERVICAL SPINE WITH CORONAL AND SAGITTAL REFORMATIONS: I agree with the preliminary report given by [facility]. POS: MARCIE
[2019-12-13] MEDS ORDERED: Lisinopril 20 MG TAB PO SCH (12:45)
[2019-12-13] MEDS ORDERED: Carvedilol 3.125 MG TAB PO SCH (12:45)
[2019-12-13] MEDS ORDERED: Loratadine 10 MG TAB PO PRN (13:15)
--- NOTE | 2019-12-13 13:18 | HP ---
PRIMARY CARE PROVIDER: Dr. Abdirahman Fonseca. CHIEF COMPLAINT: Fall. HISTORY OF PRESENT ILLNESS: Mr. Newell is a pleasant 89-year-old gentleman, who was seen at [facility] on December 13, 2019. The patient is able to provide some history. Collateral history was obtained from discussion with the patient's son over the telephone, review of medical records, and discussion with emergency room physician. [place]. [place] He had an unwitnessed fall with injury to his head. The patient was reportedly having worsening confusion over the last several days. He is usually oriented x3, but has only been oriented x2 for the last few days. Yesterday evening, he was found on the ground with a blood surrounding his head. The blood was reportedly dried, suggesting the patient was lying on the floor for a long time. The patient currently denies any chest pain or shortness of breath. He denies any fevers or chills. He denies any urinary symptoms. REVIEW OF SYSTEMS: All systems were reviewed and found to be negative except for the pertinent positives mentioned above. PAST MEDICAL HISTORY: Aortic regurgitation, hypertension, ischemic cerebrovascular disease, skin cancer, second-degree AV block. PAST SURGICAL HISTORY: Skin cancer excision, loop recorder placement. SOCIAL HISTORY: Occasional alcohol use. No tobacco use or recreational drug use. ALLERGIES: STATINS. CURRENT MEDICATIONS: 1. Carbamazepine 100 mg, frequency unknown. 2. Coreg 3.125 mg 2 times a day. 3. Proscar 5 mg daily. 4. Fexofenadine 60 mg daily. 5. Flonase 1 spray to each nares daily. 6. Lasix 20 mg 2 times a day as needed. 7. Ibuprofen 600 mg 3 times a day. 8. Magnesium oxide 400 mg 2 times a day. 9. Spironolactone 25 mg daily. 10. Tamsulosin 0.4 mg daily. 11. Pepcid 20 mg 2 times a day. 12. Amlodipine 10 mg daily. 13. Hydralazine 75 mg 3 times a day. 14. Lisinopril 20 mg daily. CODE STATUS: I discussed his code status with his son. He is DNAR. PHYSICAL EXAMINATION: GENERAL: Mr. Newell is awake and alert, not in acute distress. VITAL SIGNS: Blood pressure is 178/77, pulse 65, respiratory rate 16, and oxygen saturation 92% on room air. EYES: He has right orbital hematoma. Left eye, no scleral icterus. ENT: Moist mucosal membranes. No oropharyngeal erythema or exudates. NECK: Supple, nontender, trachea is midline. RESPIRATORY: Accessory muscles of breathing are not active. Chest wall movements are symmetric bilaterally. Lungs are clear to auscultation without wheezes, rhonchi, or crepitations. CARDIOVASCULAR: S1 and S2 are heard, regular. Peripheral pulses palpable. ABDOMEN: Soft, nontender, bowel sounds are heard. NEUROLOGIC: Full neurologic examination was not possible. No facial droop. The patient is moving all 4 extremities. Deep tendon reflexes 2+, plantars are downgoing bilaterally. MUSCULOSKELETAL: The patient is moving all 4 extremities. SKIN: He has bilateral lower extremity edema. LYMPHATIC: No cervical lymphadenopathy. PSYCHIATRIC: Normal mood, normal place, the patient is oriented to person and place, not to time. LABORATORY DATA: Mr. Newell's labs and investigations were reviewed. I reviewed his electrocardiogram, which shows atrial fibrillation with right bundle-branch block. I also reviewed his chest x-ray, which does not show any pulmonary infiltrates. He does have prominent pulmonary vessels. Cervical spine CT did not show any evidence of fracture. He has multilevel [id number] degenerative disk disease, multilevel foraminal stenosis, and moderate central stenosis at C6-C7. Noncontrast CT scan of the brain did not show any intracranial bleed. He has normal white count, normocytic anemia with hemoglobin 13.4, normal platelet count, decreased sodium of 135, elevated alkaline phosphatase of 227, elevated creatine kinase of 322, otherwise unremarkable liver profile, normal TSH, normal folate, and normal vitamin B12. Troponin I is normal. Urinalysis is positive for leukocyte esterase and bacteria. ASSESSMENT AND PLAN: Mr. Newell is a pleasant 89-year-old gentleman who was seen at [facility] on December 13, 2019. His problem list includes: 1. Acute metabolic encephalopathy: Mr. Newell is presenting with altered mental status, most likely secondary to urinary tract infection. He will be admitted to the hospital for further management. 2. Urinary tract infection: He has already been started on ceftriaxone, which I will continue. I will await urine culture report to narrow the antibiotic spectrum. 3. Falls: The patient has a previous history of falls. He is presenting with recurrent falls. I will get evaluation by OT and PT. 4. Rhabdomyolysis: At this point, rhabdomyolysis is mild. I will recheck his CK level. 5. Congestive heart failure: Suspected, based on chest x-ray findings. I will hold intravenous fluids and start him on diuretics. I will also check his BNP level. 6. Hypertension: The patient is actually in hypertensive urgency at this time. I will add p.r.n. antihypertensives and resume his home medications. He is on multiple antihypertensive medications. 7. Elevated alkaline phosphatase: Etiology is unclear. I will recheck the alkaline phosphatase. Many thanks for allowing me to participate in your patient's care. Please feel free to contact me with any questions or concerns. LEVEL OF RISK: High. LEVEL OF COMPLEXITY: High. Job ID: [id number]
[2019-12-13] MEDS: Furosemide 20 MG/2 ML VIAL SLOW IVP SCH (14:08)
[2019-12-13] MEDS: hydrALAZINE 25 MG TAB PO SCH ×2 (16:11→21:08)
--- NOTE | 2019-12-13 18:00 | CON ---
DATE OF CONSULTATION: 12/13/2019 REASON FOR CONSULTATION: Bradycardia. Please see Erica Romano's full consultation for details. HISTORY OF PRESENT ILLNESS: Briefly, Mr. Newell presented with a fall. He was found to be bradycardic. This has been noted in the past. He has had PVCs. It is unknown whether his syncope is truly related to underlying rhythm issues. He had an ILR placed several months ago. Unfortunately, the ILR is no longer palpated in the area that was placed. He has undergone a chest x-ray with no metal present. I discussed proceeding with a CT scan in addition to abdominal and chest x-ray for the patient. The patient and family opted against this. This occurred as an outpatient. IMPRESSION: 1. Recent fall. 2. Bradycardia. 3. Dementia. RECOMMENDATIONS: Certainly difficult case, Mr. Newell. It is suspected that the ILR is somewhere in his room. It continues to transmit, but it is obviously not on his body. When it transmits, it is artifact. Much discussion has been noted with the son in the past and had not been interested in further treatment. Erica Romano has reached out to the son this afternoon to no avail. We will try to reach out him tomorrow. Job ID: [id number]
[2019-12-13] MEDS ORDERED: FLU VACC TS2019-20(65YR UP)/PF 180 MCG/0.5 ML SYRINGE IM ONE (21:00)
[2019-12-13] MEDS: Magnesium Oxide 400 MG TAB PO SCH (21:08)
[2019-12-13] MEDS: Carvedilol 3.125 MG TAB PO SCH (21:08)
[2019-12-13] MEDS: carBAMazepine 100 mg Chewable Tablet PO SCH (21:08)
[2019-12-13] MEDS: Famotidine 20 MG TAB PO SCH (21:08)
[2019-12-14 04:21] LABS: #Lymphocytes 1.8 thou/uL (1.20-3.40); #Monocytes 0.9 thou/uL (0.11-0.59); #Neutrophils 7.5 thou/uL (1.40-6.50); %Basophils 0.5 % (0.0-1.0); %Eosinophils 0.2 % (0.0-10.0); %Lymphocytes 17.2 % (21.0-51.0); %Monocytes 8.5 % (0.0-10.0); %Neutrophils 73.7 % (42.0-75.0); Hemoglobin 13.6 g/dL (14.0-18.0); Mean Corpuscular HGB CONC 32.4 g/dL (32.0-36.0); Mean Corpuscular Hemoglobin 30.5 pg (27.0-31.0); Mean Corpuscular Volume 94.1 fL (78.0-98.0); Mean Platelet Volume 7.3 fL (7.4-10.4); Platelet Count 289 thou/uL (130-400); RBC Distribution Width 15.2 % (11.5-14.5); Red Blood Cell (RBC) Count 4.47 mill/uL (4.70-6.10); White Blood Cell (WBC) Count 10.2 thou/uL (4.8-10.8)
[2019-12-14] MEDS: hydrALAZINE 20 MG/ML VIAL SLOW IVP PRN ×2 (04:29→08:23)
[2019-12-14] MEDS: cefTRIAXone\\ROCEPHIN 1 GM in Sodium Chloride 0.9% 100 ML IVPB SCH (04:29)
[2019-12-14 04:50] LABS: ALT (SGPT) 12 U/L (8-55); AST (SGOT) 22 U/L (5-34); Albumin 2.9 g/dL (3.4-4.8); Alkaline Phosphatase 173 U/L (40-110); Anion Gap 13 mmol/L (10-20); BUN (Urea Nitrogen) 19 mg/dL (8.4-25.7); Bilirubin, Total 0.8 mg/dL (0.2-1.2); CK (CPK) 399 U/L (30-200); Calc. Creatinine Clearance 76 mL/min (70-130); Calcium 8.3 mg/dL (7.8-10.44); Carbon Dioxide 27 mmol/L (23-31); Chloride 99 mmol/L (98-107); Estimated GFR-MDRD Greater than 90; Globulin 2.6 g/dL (2.4-3.5); Glucose 126 mg/dL (83-110); Protein, Total 5.5 g/dL (5.8-8.1); Sodium 136 mmol/L (136-145)
[2019-12-14] MEDS: Furosemide 20 MG/2 ML VIAL SLOW IVP SCH ×2 (05:53→14:46)
[2019-12-14] MEDS ORDERED: Non-Formulary Item 1 EACH (Fluticasone Propionate [Flonase Allergy Relief] 1 SPRAY) EA NARE SCH (09:00)
[2019-12-14] MEDS ORDERED: Furosemide 20 MG TAB PO SCH (09:00)
[2019-12-14] MEDS ORDERED: hydrALAZINE 20 MG/ML VIAL SLOW IVP SCH (10:00)
[2019-12-14] MEDS: Amlodipine 10 MG TAB PO SCH (12:05)
[2019-12-14] MEDS: Finasteride 5 MG TAB PO SCH (12:07)
[2019-12-14] MEDS: Carvedilol 3.125 MG TAB PO SCH ×2 (12:07→21:15)
[2019-12-14] MEDS: Famotidine 20 MG TAB PO SCH ×2 (12:07→21:15)
[2019-12-14] MEDS: hydrALAZINE 25 MG TAB PO SCH ×3 (12:08→21:15)
[2019-12-14] MEDS: Lisinopril 20 MG TAB PO SCH (12:09)
[2019-12-14] MEDS: Tamsulosin HCl 0.4 MG CAP PO SCH (12:09)
[2019-12-14] MEDS: Spironolactone 25 MG TAB PO SCH (12:09)
[2019-12-14] MEDS: Magnesium Oxide 400 MG TAB PO SCH ×2 (12:09→21:15)
--- NOTE | 2019-12-14 12:41 | PDOC.CPN ---
- Subjective Date: 12/14/19 Time: 12:38 Interval history: Reviewed tele. SW son. See below. - Review of Systems ROS unobtainable: due to mental status - Objective Allergies/Adverse Reactions: Allergies Allergy/AdvReac Type Severity Reaction Status Date / Time [id number]-Jyh-[id number] Reductase Allergy Verified 03/07/19 21:17 Inhibitor Visit Medications: Current Medications Acetaminophen (Tylenol) 650 mg PO Q4H PRN PRN Reason: Headache/Fever/Mild Pain (1-3) Amlodipine Besylate (Norvasc) 10 mg PO DAILY [facility] Last Admin: 12/14/19 12:05 Dose: 10 mg Calcium Carbonate (Tums) 1,000 mg PO Q4H PRN PRN Reason: Heartburn or Indigestion Carbamazepine (Tegretol) 100 mg PO HS [facility] Last Admin: 12/13/19 21:08 Dose: 100 mg Carvedilol (Coreg) 3.125 mg PO BID [facility] Last Admin: 12/14/19 12:07 Dose: Not Given Famotidine (Pepcid) 20 mg PO Q12HR [facility] Last Admin: 12/14/19 12:07 Dose: 20 mg Finasteride (Proscar) 5 mg PO DAILY [facility] Last Admin: 12/14/19 12:07 Dose: 5 mg Fluticasone Propionate (Flonase Nasal [place]) 0 gm NASAL DAILY [facility] Furosemide (Lasix) 20 mg SLOW IVP 0600,1400 [facility] Last Admin: 12/14/19 05:53 Dose: 20 mg Hydralazine HCl (Apresoline) 10 mg SLOW IVP Q4H PRN PRN Reason: SBP Greater Than 180 Last Admin: 12/14/19 08:23 Dose: 10 mg Hydralazine HCl (Apresoline) 75 mg PO TID [facility] Last Admin: 12/14/19 12:08 Dose: 75 mg Ceftriaxone Sodium 1 gm/ (Sodium Chloride) 100 mls @ 200 mls/hr IVPB Q24HR [facility] Last Admin: 12/14/19 04:29 Dose: 100 mls Lisinopril (Zestril) 20 mg PO DAILY [facility] Last Admin: 12/14/19 12:09 Dose: 20 mg Loratadine (Claritin) 10 mg PO DAILYPRN PRN PRN Reason: Allergies Magnesium Oxide (Magnesium Oxide) 400 mg PO BID [facility] Last Admin: 12/14/19 12:09 Dose: 400 mg Ondansetron HCl (Zofran Odt) 4 mg PO Q6H PRN PRN Reason: Nausea/Vomiting Ondansetron HCl (Zofran) 4 mg IVP Q6H PRN PRN Reason: Nausea/Vomiting Sodium Chloride (Flush - Normal Saline) 10 ml IVF Q12HR [facility] Last Admin: 12/14/19 12:09 Dose: 10 ml Sodium Chloride (Flush - Normal Saline) 10 ml IVF PRN PRN PRN Reason: Saline Flush Spironolactone (Aldactone) 25 mg PO DAILY [facility] Last Admin: 12/14/19 12:09 Dose: 25 mg Tamsulosin HCl (Flomax) 0.4 mg PO DAILY [facility] Last Admin: 12/14/19 12:09 Dose: 0.4 mg Vital Signs & Weight: Vital Signs Temp Pulse Pulse Resp BP BP BP 12/14/19 12:19 98.2 F 62 20 176/101 H 12/14/19 10:59 57 L 195/76 H 12/14/19 10:17 52 L 12/14/19 08:10 99.3 F 52 L 18 185/77 H 12/14/19 07:16 12/14/19 04:29 55 L 12/14/19 04:00 57 L 143/67 H 12/14/19 03:10 184/86 H 12/14/19 03:02 97.8 F 55 L 18 184/86 H 12/14/19 02:03 Pulse Ox 12/14/19 12:19 94 L 12/14/19 10:59 12/14/19 10:17 12/14/19 08:10 94 L 12/14/19 07:16 94 L 12/14/19 04:29 12/14/19 04:00 12/14/19 03:10 12/14/19 03:02 94 L 12/14/19 02:03 94 L Admit Weight 173 lb 14.4 oz Weight 168 lb 1.6 oz - Physical Exam General: no apparent distress HEENT: mucus membranes moist Neck: supple neck Cardiac: regular rate and rhythm, other (ectopic PVCs noted) Lungs: clear to auscultation Neuro: grossly intact Abdomen: unremarkable - Labs Result Diagrams: 12/14/19 03:46 12/14/19 03:46 Troponin/CKMB Troponin I 0.026 ng/mL (< 0.028) 12/13/19 02:02 - Assessment/Plan Assessment/Plan: 1. PVCs 2. Bradycardia 3. History of LINQ placement s/p assumed self-removal 4. AMS 5. UTI 6. AF Reviewed tele. Patient does filomena down while sleeping, but no documented symptomatic bradycardia while awake. Had long discussiong with son today. In the past they have not wanted aggressive therapy. He reiterates today that they do not want pacemaker placement stating his father does not want any surgeries. Does not want EVR or LINQ replaced. Requests erecting engineer be call for last rites and comfort care only arranged regarding cardiac issues. Will sign off.
--- NOTE | 2019-12-14 13:01 | PDOC.HOSPP ---
- Subjective Encounter Date: 12/14/19 Encounter Time: 07:20 Subjective: Pt seen for followup re: acute metabolic encephalopathy. Lying in bed with eyes closed, not answering questions. Could not complete ROS. - Objective Vital Signs & Weight: Vital Signs (12 hours) Temp Pulse Pulse Resp BP BP BP 12/14/19 12:19 98.2 F 62 20 176/101 H 12/14/19 10:59 57 L 195/76 H 12/14/19 10:17 52 L 12/14/19 08:10 99.3 F 52 L 18 185/77 H 12/14/19 07:16 12/14/19 04:29 55 L 12/14/19 04:00 57 L 143/67 H 12/14/19 03:10 184/86 H 12/14/19 03:02 97.8 F 55 L 18 184/86 H 12/14/19 02:03 Pulse Ox 12/14/19 12:19 94 L 12/14/19 10:59 12/14/19 10:17 12/14/19 08:10 94 L 12/14/19 07:16 94 L 12/14/19 04:29 12/14/19 04:00 12/14/19 03:10 12/14/19 03:02 94 L 12/14/19 02:03 94 L Weight Admit Weight 173 lb 14.4 oz Weight 168 lb 1.6 oz I&O: 12/13/19 12/14/19 12/15/19 06:59 06:59 06:59 Intake Total 120 Output Total 3000 Balance -2880 Result Diagrams: 12/14/19 03:46 12/14/19 03:46 Additional Labs: Labs and MARs reviewed by me EKG Reviewed by me: Yes (Tele: lynnette mario) Hospitalist ROS - Review of Systems ROS unobtainable: due to mental status - Medication Medications: Active Medications Generic Name Dose Route Start Last Admin Trade Name Freq PRN Reason Stop Dose Admin Amlodipine Besylate 10 mg 12/14/19 09:00 12/14/19 12:05 Norvasc PO 10 mg DAILY RON Administration Carbamazepine 100 mg 12/13/19 21:00 12/13/19 21:08 Tegretol PO 100 mg HS RON Administration Carvedilol 3.125 mg 12/13/19 21:00 12/14/19 12:07 Coreg PO Not Given BID RON Famotidine 20 mg 12/13/19 21:00 12/14/19 12:07 Pepcid PO 20 mg Q12HR RON Administration Finasteride 5 mg 12/14/19 09:00 12/14/19 12:07 Proscar PO 5 mg DAILY RON Administration Furosemide 20 mg 12/13/19 14:00 12/14/19 05:53 Lasix SLOW IVP 20 mg 0600,1400 RON Administration Hydralazine HCl 10 mg 12/13/19 05:40 12/14/19 08:23 Apresoline SLOW IVP 10 mg Q4H PRN Administration SBP Greater Than 180 Hydralazine HCl 75 mg 12/13/19 15:00 12/14/19 12:08 Apresoline PO 75 mg TID RON Administration Ceftriaxone Sodium 1 gm/ 100 mls @ 200 mls/hr 12/14/19 02:00 12/14/19 04:29 Sodium Chloride IVPB 100 mls Q24HR RON Administration Lisinopril 20 mg 12/14/19 09:00 12/14/19 12:09 Zestril PO 20 mg DAILY RON Administration Magnesium Oxide 400 mg 12/13/19 21:00 12/14/19 12:09 Magnesium Oxide PO 400 mg BID RON Administration Sodium Chloride 10 ml 12/13/19 21:00 12/14/19 12:09 Flush - Normal Saline IVF 10 ml Q12HR RON Administration Spironolactone 25 mg 12/14/19 09:00 12/14/19 12:09 Aldactone PO 25 mg DAILY RON Administration Tamsulosin HCl 0.4 mg 12/14/19 09:00 12/14/19 12:09 Flomax PO 0.4 mg DAILY RON Administration - Exam Eye - other findings: right orbital hematoma ENT: moist mucosa Neck: supple, no thyromegaly, no lymphadenopathy Heart: no rubs, irregular Respiratory: CTAB Gastrointestinal: soft, non-tender Skin: no rashes Musculoskeletal: no muscle wasting Psychiatric - other findings: Unable to assess Hosp A/P (1) Acute metabolic encephalopathy Code(s): G93.41 - METABOLIC ENCEPHALOPATHY Status: Acute (2) UTI (urinary tract infection) Status: Acute (3) Hypokalemia Code(s): E87.6 - HYPOKALEMIA Status: Acute (4) Hypertension Code(s): I10 - ESSENTIAL (PRIMARY) HYPERTENSION Status: Chronic Qualifiers: Hypertension type: essential hypertension Qualified Code(s): I10 - Essential (primary) hypertension (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 Pt had CK elevations in the past as well. Trend CK. IV furosemide for CHF Replace potassium Monitor vital signs and titrate antihypertensives as needed.
[2019-12-14] MEDS ORDERED: Potassium Chloride 40 MEQ in Premix Bag 1 BAG IVPB SCH (13:15)
[2019-12-14] MEDS: Fluticasone Propionate Nasal Spray 16 gm Bottle NASAL SCH (14:44)
[2019-12-14] MEDS: Potassium Chloride 20 MEQ in Premix Bag 1 BAG IVPB SCH ×2 (15:36→17:49)
[2019-12-14] MEDS: carBAMazepine 100 mg Chewable Tablet PO SCH (21:15)
[2019-12-15] MEDS: cefTRIAXone\\ROCEPHIN 1 GM in Sodium Chloride 0.9% 100 ML IVPB SCH (03:50)
[2019-12-15] MEDS: hydrALAZINE 20 MG/ML VIAL SLOW IVP PRN (04:29)
[2019-12-15] MEDS: Furosemide 20 MG/2 ML VIAL SLOW IVP SCH ×2 (06:08→13:59)
[2019-12-15] MEDS: Carvedilol 3.125 MG TAB PO SCH ×2 (08:41→21:52)
[2019-12-15] MEDS: Amlodipine 10 MG TAB PO SCH (08:42)
[2019-12-15] MEDS: Famotidine 20 MG TAB PO SCH ×2 (08:43→21:51)
[2019-12-15] MEDS: hydrALAZINE 25 MG TAB PO SCH ×3 (08:43→21:52)
[2019-12-15] MEDS: Fluticasone Propionate Nasal Spray 16 gm Bottle NASAL SCH (08:43)
[2019-12-15] MEDS: Finasteride 5 MG TAB PO SCH (08:43)
[2019-12-15] MEDS: Tamsulosin HCl 0.4 MG CAP PO SCH (08:44)
[2019-12-15] MEDS: Lisinopril 20 MG TAB PO SCH (08:44)
[2019-12-15] MEDS: Spironolactone 25 MG TAB PO SCH (08:44)
[2019-12-15] MEDS: Magnesium Oxide 400 MG TAB PO SCH ×2 (08:44→21:51)
--- NOTE | 2019-12-15 13:32 | PDOC.HOSPP ---
- Subjective Encounter Date: 12/15/19 Subjective: No new complains - Objective Vital Signs & Weight: Vital Signs (12 hours) Temp Pulse Resp BP Pulse Ox 12/15/19 12:36 97.5 F L 59 L 20 181/83 H 93 L 12/15/19 08:52 96 12/15/19 08:43 96 12/15/19 08:24 98.2 F 58 L 19 167/74 H 96 12/15/19 05:00 180/79 H 12/15/19 04:29 60 12/15/19 03:37 97.7 F 20 200/78 H 93 L Weight Admit Weight 173 lb 14.4 oz Weight 168 lb 1.6 oz I&O: 12/14/19 12/15/19 12/16/19 06:59 06:59 06:59 Intake Total 120 335 Output Total 3000 3050 Balance -5350 -1309 Result Diagrams: 12/14/19 03:46 12/14/19 03:46 Hospitalist ROS - Medication Medications: Active Medications Generic Name Dose Route Start Last Admin Trade Name Vandana PRN Reason Stop Dose Admin Amlodipine Besylate 10 mg 12/14/19 09:00 12/15/19 08:42 Norvasc PO 10 mg DAILY RON Administration Carbamazepine 100 mg 12/13/19 21:00 12/14/19 21:15 Tegretol PO 100 mg HS RON Administration Carvedilol 3.125 mg 12/13/19 21:00 12/15/19 08:41 Coreg PO Not Given BID RON Famotidine 20 mg 12/13/19 21:00 12/15/19 08:43 Pepcid PO 20 mg Q12HR RON Administration Finasteride 5 mg 12/14/19 09:00 12/15/19 08:43 Proscar PO 5 mg DAILY RON Administration Fluticasone Propionate 0 gm 12/14/19 09:00 12/15/19 08:43 Flonase Nasal [place] NASAL 1 spray DAILY RON Administration Furosemide 20 mg 12/13/19 14:00 12/15/19 06:08 Lasix SLOW IVP 20 mg 0600,1400 RON Administration Hydralazine HCl 10 mg 12/13/19 05:40 12/15/19 04:29 Apresoline SLOW IVP 10 mg Q4H PRN Administration SBP Greater Than 180 Hydralazine HCl 75 mg 12/13/19 15:00 12/15/19 08:43 Apresoline PO 75 mg TID RON Administration Ceftriaxone Sodium 1 gm/ 100 mls @ 200 mls/hr 12/14/19 02:00 12/15/19 03:50 Sodium Chloride IVPB 100 mls Q24HR RON Administration Lisinopril 20 mg 12/14/19 09:00 12/15/19 08:44 Zestril PO 20 mg DAILY RON Administration Magnesium Oxide 400 mg 12/13/19 21:00 12/15/19 08:44 Magnesium Oxide PO 400 mg BID RON Administration Sodium Chloride 10 ml 12/13/19 21:00 12/15/19 08:46 Flush - Normal Saline IVF Not Given Q12HR RON Spironolactone 25 mg 12/14/19 09:00 12/15/19 08:44 Aldactone PO 25 mg DAILY RON Administration Tamsulosin HCl 0.4 mg 12/14/19 09:00 12/15/19 08:44 Flomax PO 0.4 mg DAILY RON Administration - Exam General Appearance: awake alert Neck: supple, no JVD Heart: RRR Respiratory: CTAB Gastrointestinal: soft Hosp A/P (1) Acute metabolic encephalopathy Code(s): G93.41 - METABOLIC ENCEPHALOPATHY Status: Acute (2) UTI (urinary tract infection) Status: Acute (3) 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
--- NOTE | 2019-12-15 15:04 | EKG ---
Test Reason : Blood Pressure : / mmHG Vent. Rate : 062 BPM Atrial Rate : 069 BPM P-R Int : 000 ms QRS Dur : 152 ms QT Int : 514 ms P-R-T Axes : 000 -28 -28 degrees QTc Int : 521 ms Atrial fibrillation Right bundle branch block Abnormal ECG Confirmed by BRITTANY RICK ([id number]), assistant editor TACOS BARRIENTOS ([id number]) on 12/15/2019 3:04:12 PM Referred By: Confirmed By:BRITTANY RICK
[2019-12-15] MEDS: carBAMazepine 100 mg Chewable Tablet PO SCH (21:52)
[2019-12-16] MEDS: cefTRIAXone\\ROCEPHIN 1 GM in Sodium Chloride 0.9% 100 ML IVPB SCH (03:29)
[2019-12-16] MEDS: Furosemide 20 MG/2 ML VIAL SLOW IVP SCH ×2 (05:29→14:07)
[2019-12-16] MEDS: hydrALAZINE 20 MG/ML VIAL SLOW IVP PRN ×2 (05:29→09:54)
[2019-12-16] MEDS ORDERED: Potassium Chloride 20 MEQ TAB PO SCH (09:45)
[2019-12-16] MEDS: hydrALAZINE 25 MG TAB PO SCH ×3 (09:51→21:05)
[2019-12-16] MEDS: Lisinopril 20 MG TAB PO SCH (09:52)
[2019-12-16] MEDS: Amlodipine 10 MG TAB PO SCH (09:53)
[2019-12-16] MEDS: Spironolactone 25 MG TAB PO SCH (09:53)
[2019-12-16] MEDS: Famotidine 20 MG TAB PO SCH ×2 (09:53→21:05)
[2019-12-16] MEDS: Finasteride 5 MG TAB PO SCH (09:53)
[2019-12-16] MEDS: Tamsulosin HCl 0.4 MG CAP PO SCH (09:54)
[2019-12-16] MEDS: Magnesium Oxide 400 MG TAB PO SCH ×2 (09:54→21:05)
[2019-12-16] MEDS: Fluticasone Propionate Nasal Spray 16 gm Bottle NASAL SCH (09:55)
[2019-12-16] MEDS: Carvedilol 3.125 MG TAB PO SCH (11:25)
--- NOTE | 2019-12-16 12:55 | PDOC.HOSPP ---
- Subjective Encounter Date: 12/16/19 - Objective Vital Signs & Weight: Vital Signs (12 hours) Temp Pulse Resp BP BP Pulse Ox 12/16/19 11:27 97.4 F L 63 10 L 171/84 H 95 12/16/19 09:54 53 L 208/81 H 12/16/19 09:53 53 L 208/81 H 12/16/19 09:52 208/81 H 12/16/19 09:51 53 L 208/81 H 12/16/19 08:34 97.5 F L 53 L 16 208/81 H 96 12/16/19 06:55 96 12/16/19 06:02 145/63 H 12/16/19 05:29 55 L 12/16/19 04:00 98.7 F 55 L 21 H 196/80 H 96 Weight Admit Weight 173 lb 14.4 oz Weight 168 lb 1.6 oz I&O: 12/15/19 12/16/19 12/17/19 06:59 06:59 06:59 Intake Total 335 240 Output Total 3050 1100 Balance -7659 -320 Result Diagrams: 12/14/19 03:46 12/14/19 03:46 Hospitalist ROS - Medication Medications: Active Medications Generic Name Dose Route Start Last Admin Trade Name Freq PRN Reason Stop Dose Admin Amlodipine Besylate 10 mg 12/14/19 09:00 12/16/19 09:53 Norvasc PO 10 mg DAILY RON Administration Carbamazepine 100 mg 12/13/19 21:00 12/15/19 21:52 Tegretol PO 100 mg HS RON Administration Famotidine 20 mg 12/13/19 21:00 12/16/19 09:53 Pepcid PO 20 mg Q12HR RON Administration Finasteride 5 mg 12/14/19 09:00 12/16/19 09:53 Proscar PO 5 mg DAILY RON Administration Fluticasone Propionate 0 gm 12/14/19 09:00 12/16/19 09:55 Flonase Nasal [place] NASAL 1 spray DAILY RON Administration Furosemide 20 mg 12/13/19 14:00 12/16/19 05:29 Lasix SLOW IVP 20 mg 0600,1400 RON Administration Hydralazine HCl 10 mg 12/13/19 05:40 12/16/19 09:54 Apresoline SLOW IVP 10 mg Q4H PRN Administration SBP Greater Than 180 Hydralazine HCl 75 mg 12/13/19 15:00 12/16/19 09:51 Apresoline PO 75 mg TID RON Administration Ceftriaxone Sodium 1 gm/ 100 mls @ 200 mls/hr 12/14/19 02:00 12/16/19 03:29 Sodium Chloride IVPB 100 mls Q24HR RON Administration Lisinopril 20 mg 12/14/19 09:00 12/16/19 09:52 Zestril PO 20 mg DAILY RON Administration Magnesium Oxide 400 mg 12/13/19 21:00 12/16/19 09:54 Magnesium Oxide PO 400 mg BID RON Administration Sodium Chloride 10 ml 12/13/19 21:00 12/16/19 09:57 Flush - Normal Saline IVF 10 ml Q12HR RON Administration Spironolactone 25 mg 12/14/19 09:00 12/16/19 09:53 Aldactone PO 25 mg DAILY RON Administration Tamsulosin HCl 0.4 mg 12/14/19 09:00 12/16/19 09:54 Flomax PO 0.4 mg DAILY RON Administration - Exam General Appearance: awake alert Neck: supple Heart: RRR Respiratory: CTAB Gastrointestinal: soft, non-tender, non-distended Hosp A/P (1) Acute metabolic encephalopathy Code(s): G93.41 - METABOLIC ENCEPHALOPATHY Status: Acute (2) UTI (urinary tract infection) Status: Acute (3) 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 Plan to DC to hospice when placement available. Continue current antihypertensives. BB discontinued due to bradycardia.
--- NOTE | 2019-12-16 13:53 | PQF ---
LAZARO PARRA MOEZ [id number] [facility]-[id number] CLINICAL DOCUMENTATION IMPROVEMENT CLARIFICATION FORM: ICD-10 Updated PLEASE DO AN ADDENDUM TO THE PROGRESS NOTE WITH ANY DOCUMENTATION UPDATES OR ADDITIONS AND CARRY THROUGH TO DC SUMMARY. THANK YOU. DATE: 12/16/2019 ATTN: DR. Velia YODER Please exercise your independent, professional judgment in responding to the clarification form. Clinical indicators are provided on the bottom of this form for your review. Please check appropriate box(s): CONGESTIVE HEART FAILURE: A. ACUITY [ ] Acute [ >] Acute on Chronic [ ] Chronic B. TYPE [ ] Systolic / HFrEF [ >] Diastolic / HFpEF [ ] Combined Systolic / Diastolic [ ] Hypertensive Heart and Kidney disease [ ] Hypertensive Heart Disease [ ] Hypertensive Kidney Disease [ ] Other diagnosis [ ] Unable to determine In addition, please specify: Present on Admission (POA): [ >] Yes [ ] No [ ] Unable to determine For continuity of documentation, please document condition throughout progress notes and discharge summary. Thank You. CLINICAL INDICATORS - SIGNS / SYMPTOMS / LABS / RESULTS AND LOCATION IN EMR 12/12 BNP 1934.7 12/12 H&P (PEARSON) A/P: 5). CONGESTIVE HEART FAILURE: SUSPECTED, BASED ON CXR FINDINGS 12/12 CXR : IMPRESSION-- CHF. SUPERIMPOSED BIBASILAR ATELECTASIS, ASPIRATION AND OR PNEUMONIA CANT BE EXCLUDED. 12/13 PN (LILI) PLAN: IV FUROSEMIDE FOR CHF 12/14 ECHO: EF 50-55%, DIASTOLIC FUNCTION INDETERMINATE D/T ATRIAL FIBRILLATION, MILDLY DILATED LT ATRIUM, MODERATELY ENLARGED RT ATRIUM SIZE, MILD MITRAL REGURGITATION, MODERATED AORTIC REGURGITATION, MILD TRICUSPID REGURGITATION, ELEVATED RT VENTRICLE SYSTOLIC PRESSURE ESTIMATED AT 45MMHg, MILD PULMONIC REGURGITATION PRESENT. RISK: ADVANCED AGE (89), HYPERTENSION , (PN/PEARSON) 12/13 SECOND DEGREE AV BLOCK MOBITZ TYPE I (LEIGH/PARESH) 12/15 TREATMENTS: CARDIOLOGY CONSULT (12/12 FUROSEMIDE IV ( PEARSON/PN) 12/12- present THANK YOU! CESAR (This form is maintained as a part of the permanent medical record) 2014 [employer]. All Rights Reserved [email or web address]
[2019-12-16] MEDS: carBAMazepine 100 mg Chewable Tablet PO SCH (21:06)
[2019-12-17] MEDS: cefTRIAXone\\ROCEPHIN 1 GM in Sodium Chloride 0.9% 100 ML IVPB SCH (02:39)
[2019-12-17] MEDS: Furosemide 20 MG/2 ML VIAL SLOW IVP SCH ×2 (06:01→13:19)
[2019-12-17] MEDS: Magnesium Oxide 400 MG TAB PO SCH ×2 (08:49→20:19)
[2019-12-17] MEDS: Amlodipine 10 MG TAB PO SCH (08:50)
[2019-12-17] MEDS: hydrALAZINE 25 MG TAB PO SCH ×3 (08:50→20:19)
[2019-12-17] MEDS: Fluticasone Propionate Nasal Spray 16 gm Bottle NASAL SCH (08:51)
[2019-12-17] MEDS: Lisinopril 20 MG TAB PO SCH (08:51)
[2019-12-17] MEDS: Finasteride 5 MG TAB PO SCH (08:51)
[2019-12-17] MEDS: Tamsulosin HCl 0.4 MG CAP PO SCH (08:51)
[2019-12-17] MEDS: Famotidine 20 MG TAB PO SCH ×2 (08:51→20:19)
[2019-12-17] MEDS: Spironolactone 25 MG TAB PO SCH (08:51)
--- NOTE | 2019-12-17 11:02 | PDOC.HOSPP ---
- Subjective Encounter Date: 12/17/19 Subjective: The patient was seen and examined. He is confused. Denies any shortness of breath. BP uncontrolled. - Objective Vital Signs & Weight: Vital Signs (12 hours) Temp Pulse Resp BP BP Pulse Ox 12/17/19 08:51 182/57 H 12/17/19 08:50 53 L 182/57 H 12/17/19 07:45 97.8 F 53 L 18 182/57 H 96 12/17/19 04:35 97.5 F L 56 L 18 176/48 H 94 L 12/17/19 00:38 95 12/16/19 23:43 97.5 F L 57 L 18 177/53 H 95 Weight Admit Weight 173 lb 14.4 oz Weight 168 lb 1.6 oz I&O: 12/16/19 12/17/19 12/18/19 06:59 06:59 06:59 Intake Total 240 680 Output Total 1100 1605 Balance -282 -3181 Result Diagrams: 12/14/19 03:46 12/14/19 03:46 Hospitalist ROS - Medication Medications: Active Medications Generic Name Dose Route Start Last Admin Trade Name Freq PRN Reason Stop Dose Admin Amlodipine Besylate 10 mg 12/14/19 09:00 12/17/19 08:50 Norvasc PO 10 mg DAILY RON Administration Carbamazepine 100 mg 12/13/19 21:00 12/16/19 21:06 Tegretol PO 100 mg HS RON Administration Famotidine 20 mg 12/13/19 21:00 12/17/19 08:51 Pepcid PO 20 mg Q12HR RON Administration Finasteride 5 mg 12/14/19 09:00 12/17/19 08:51 Proscar PO 5 mg DAILY RON Administration Fluticasone Propionate 0 gm 12/14/19 09:00 12/17/19 08:51 Flonase Nasal [place] NASAL 1 spray DAILY RON Administration Furosemide 20 mg 12/13/19 14:00 12/17/19 06:01 Lasix SLOW IVP 20 mg 0600,1400 RON Administration Hydralazine HCl 10 mg 12/13/19 05:40 12/16/19 09:54 Apresoline SLOW IVP 10 mg Q4H PRN Administration SBP Greater Than 180 Hydralazine HCl 75 mg 12/13/19 15:00 12/17/19 08:50 Apresoline PO 75 mg TID RON Administration Ceftriaxone Sodium 1 gm/ 100 mls @ 200 mls/hr 12/14/19 02:00 12/17/19 02:39 Sodium Chloride IVPB 100 mls Q24HR RON Administration Lisinopril 20 mg 12/14/19 09:00 12/17/19 08:51 Zestril PO 20 mg DAILY RON Administration Magnesium Oxide 400 mg 12/13/19 21:00 12/17/19 08:49 Magnesium Oxide PO 400 mg BID RON Administration Sodium Chloride 10 ml 12/13/19 21:00 12/17/19 08:52 Flush - Normal Saline IVF 10 ml Q12HR RON Administration Spironolactone 25 mg 12/14/19 09:00 12/17/19 08:51 Aldactone PO 25 mg DAILY RON Administration Tamsulosin HCl 0.4 mg 12/14/19 09:00 12/17/19 08:51 Flomax PO 0.4 mg DAILY RON Administration - Exam General Appearance: awake alert ENT: normocephalic atraumatic Neck: supple, no JVD Heart: RRR, no murmur, no gallops, no rubs, normal peripheral pulses Respiratory: CTAB, no wheezes, no rales, no ronchi, normal chest expansion Gastrointestinal: soft, non-tender, non-distended, normal bowel sounds, no palpable masses Hosp A/P (1) Hypertensive urgency Code(s): I16.0 - HYPERTENSIVE URGENCY Status: Acute (2) Acute metabolic encephalopathy Code(s): G93.41 - METABOLIC ENCEPHALOPATHY Status: Acute (3) UTI (urinary tract infection) Status: Acute (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 BP uncontrolled on Hydralazinr, lasix, spironolactone, amlodipine, lisinopril and tamsulosin. Add isosorbide mononitrate and minoxidil. Current plan is for SNF placement.
[2019-12-17] MEDS ORDERED: Minoxidil 2.5 MG TAB PO SCH (11:15)
[2019-12-17] MEDS ORDERED: Isosorbide Mononitrate (ER) 30 MG TAB PO SCH (11:15)
[2019-12-17] MEDS: carBAMazepine 100 mg Chewable Tablet PO SCH (20:18)
[2019-12-18] MEDS: cefTRIAXone\\ROCEPHIN 1 GM in Sodium Chloride 0.9% 100 ML IVPB SCH (01:55)
[2019-12-18] MEDS: Furosemide 20 MG/2 ML VIAL SLOW IVP SCH ×2 (05:33→16:13)
[2019-12-18] MEDS: Tamsulosin HCl 0.4 MG CAP PO SCH (09:35)
[2019-12-18] MEDS: Spironolactone 25 MG TAB PO SCH (09:35)
[2019-12-18] MEDS: Minoxidil 2.5 MG TAB PO SCH (09:35)
[2019-12-18] MEDS: hydrALAZINE 25 MG TAB PO SCH ×3 (09:35→20:34)
[2019-12-18] MEDS: Famotidine 20 MG TAB PO SCH ×2 (09:36→20:33)
[2019-12-18] MEDS: Magnesium Oxide 400 MG TAB PO SCH ×2 (09:36→20:33)
[2019-12-18] MEDS: Finasteride 5 MG TAB PO SCH (09:36)
[2019-12-18] MEDS: Amlodipine 10 MG TAB PO SCH (09:36)
[2019-12-18] MEDS: Isosorbide Mononitrate (ER) 30 MG TAB PO SCH (09:36)
[2019-12-18] MEDS: Fluticasone Propionate Nasal Spray 16 gm Bottle NASAL SCH (09:37)
[2019-12-18] MEDS: Lisinopril 20 MG TAB PO SCH (09:37)
--- NOTE | 2019-12-18 11:01 | PDOC.HOSPP ---
- Subjective Encounter Date: 12/18/19 Subjective: A&O X2. Denies any new complains. - Objective Vital Signs & Weight: Vital Signs (12 hours) Temp Pulse Resp BP BP Pulse Ox 12/18/19 09:37 187/61 H 12/18/19 09:36 67 187/61 H 12/18/19 09:35 67 187/61 H 12/18/19 07:33 98.1 F 67 18 187/61 H 95 12/18/19 04:00 98.1 F 54 L 18 153/39 H 94 L 12/18/19 00:00 97.6 F 61 18 153/53 H 96 Weight Admit Weight 173 lb 14.4 oz Weight 150 lb 14.4 oz I&O: 12/17/19 12/18/19 12/19/19 06:59 06:59 06:59 Intake Total 680 500 Output Total 5949 6580 Balance -6959 -1633 Result Diagrams: 12/14/19 03:46 12/14/19 03:46 Hospitalist ROS - Review of Systems Constitutional: denies: fever, chills Respiratory: denies: cough, shortness of breath Cardiovascular: denies: chest pain Gastrointestinal: denies: nausea, vomiting - Medication Medications: Active Medications Generic Name Dose Route Start Last Admin Trade Name Freq PRN Reason Stop Dose Admin Amlodipine Besylate 10 mg 12/14/19 09:00 12/18/19 09:36 Norvasc PO 10 mg DAILY RON Administration Carbamazepine 100 mg 12/13/19 21:00 12/17/19 20:18 Tegretol PO 100 mg HS RON Administration Famotidine 20 mg 12/13/19 21:00 12/18/19 09:36 Pepcid PO 20 mg Q12HR RON Administration Finasteride 5 mg 12/14/19 09:00 12/18/19 09:36 Proscar PO 5 mg DAILY RON Administration Fluticasone Propionate 0 gm 12/14/19 09:00 12/18/19 09:37 Flonase Nasal [place] NASAL 1 spray DAILY RON Administration Furosemide 20 mg 12/13/19 14:00 12/18/19 05:33 Lasix SLOW IVP 20 mg 0600,1400 RON Administration Hydralazine HCl 10 mg 12/13/19 05:40 12/16/19 09:54 Apresoline SLOW IVP 10 mg Q4H PRN Administration SBP Greater Than 180 Hydralazine HCl 75 mg 12/13/19 15:00 12/18/19 09:35 Apresoline PO 75 mg TID RON Administration Ceftriaxone Sodium 1 gm/ 100 mls @ 200 mls/hr 12/14/19 02:00 12/18/19 01:55 Sodium Chloride IVPB 100 mls Q24HR RON Administration Isosorbide Mononitrate 30 mg 12/18/19 09:00 12/18/19 09:36 Imdur Er PO 30 mg DAILY RON Administration Lisinopril 20 mg 12/14/19 09:00 12/18/19 09:37 Zestril PO 20 mg DAILY RON Administration Magnesium Oxide 400 mg 12/13/19 21:00 12/18/19 09:36 Magnesium Oxide PO 400 mg BID RON Administration Minoxidil 5 mg 12/18/19 09:00 12/18/19 09:35 Minoxidil PO 5 mg DAILY RON Administration Sodium Chloride 10 ml 12/13/19 21:00 12/18/19 09:37 Flush - Normal Saline IVF 10 ml Q12HR RON Administration Spironolactone 25 mg 12/14/19 09:00 12/18/19 09:35 Aldactone PO 25 mg DAILY RON Administration Tamsulosin HCl 0.4 mg 12/14/19 09:00 12/18/19 09:35 Flomax PO 0.4 mg DAILY RON Administration - Exam General Appearance: awake alert ENT: normocephalic atraumatic Neck: supple, no JVD Heart: RRR, no murmur, no gallops, no rubs, normal peripheral pulses Respiratory: no wheezes, normal chest expansion, no tachypnea, rhonchi Gastrointestinal: soft, non-tender, non-distended, normal bowel sounds Neurological: cranial nerve grossly intact, no focal deficits Hosp A/P (1) Hypertensive urgency Code(s): I16.0 - HYPERTENSIVE URGENCY Status: Acute (2) Acute metabolic encephalopathy Code(s): G93.41 - METABOLIC ENCEPHALOPATHY Status: Acute (3) UTI (urinary tract infection) Status: Acute (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 Negative fluid balance over the past 24 hrs. His weight decreased by 23 lbs over the past 5 days. BP was uncontrolled on Hydralazinr, lasix, spironolactone, amlodipine, lisinopril and tamsulosin. Now better controlled with addition of isosorbide mononitrate and minoxidil. Current plan is for SNF placement.
[2019-12-18] MEDS: carBAMazepine 100 mg Chewable Tablet PO SCH (20:33)
[2019-12-19] MEDS: cefTRIAXone\\ROCEPHIN 1 GM in Sodium Chloride 0.9% 100 ML IVPB SCH (02:35)
[2019-12-19] MEDS: Furosemide 20 MG/2 ML VIAL SLOW IVP SCH ×2 (05:33→16:40)
[2019-12-19] MEDS ORDERED: Tamsulosin HCl 0.4 MG CAP PO SCH (10:00)
--- NOTE | 2019-12-19 10:08 | RAD ---
XR Abdomen 1 View/KUB HISTORY: Abdominal distention COMPARISON: None. FINDINGS: The bowel gas pattern is unremarkable. There are degenerative changes in the spine.
[2019-12-19] MEDS: hydrALAZINE 25 MG TAB PO SCH ×3 (11:31→21:43)
[2019-12-19] MEDS: Minoxidil 2.5 MG TAB PO SCH (11:31)
[2019-12-19] MEDS: Finasteride 5 MG TAB PO SCH (11:34)
[2019-12-19] MEDS: Magnesium Oxide 400 MG TAB PO SCH ×2 (11:34→21:44)
[2019-12-19] MEDS: Amlodipine 10 MG TAB PO SCH (11:34)
[2019-12-19] MEDS: Famotidine 20 MG TAB PO SCH ×2 (11:35→21:43)
[2019-12-19] MEDS: Isosorbide Mononitrate (ER) 30 MG TAB PO SCH (11:35)
[2019-12-19] MEDS: Lisinopril 20 MG TAB PO SCH (11:35)
[2019-12-19] MEDS: Spironolactone 25 MG TAB PO SCH (11:35)
--- NOTE | 2019-12-19 12:20 | PDOC.HOSPP ---
- Subjective Subjective: Seen and examined. Patient having a very full understanding bladder, it is causing them significant discomfort. The bladder scan was performed and there were residuals. Have ordered PRN straight catheterization for retention. He has been unable to avoid easily and only able to get a little urine out. I have increased his Flomax. We're pending placement. KUB ordered and non-remarkable. - Objective Vital Signs & Weight: Vital Signs (12 hours) Temp Pulse Resp BP Pulse Ox 12/19/19 07:47 97.6 F 54 L 16 186/57 H 94 L 12/19/19 03:00 97.5 F L 44 L 18 157/65 H 92 L Weight Admit Weight 173 lb 14.4 oz Weight 150 lb 14.4 oz I&O: 12/18/19 12/19/19 12/20/19 06:59 06:59 06:59 Intake Total 500 1160 Output Total 2640 1500 900 Balance -1840 340 900 Result Diagrams: 12/14/19 03:46 12/14/19 03:46 Radiology Reviewed by me: Yes Hospitalist ROS - Review of Systems All other systems reviewed; all pertinent +/- noted in HPI/Subj - Medication Medications: Active Medications Generic Name Dose Route Start Last Admin Trade Name Freq PRN Reason Stop Dose Admin Amlodipine Besylate 10 mg 12/14/19 09:00 12/18/19 09:36 Norvasc PO 10 mg DAILY RON Administration Carbamazepine 100 mg 12/13/19 21:00 12/18/19 20:33 Tegretol PO 100 mg HS RON Administration Famotidine 20 mg 12/13/19 21:00 12/18/19 20:33 Pepcid PO 20 mg Q12HR RON Administration Finasteride 5 mg 12/14/19 09:00 12/18/19 09:36 Proscar PO 5 mg DAILY RON Administration Fluticasone Propionate 0 gm 12/14/19 09:00 12/18/19 09:37 Flonase Nasal [place] NASAL 1 spray DAILY RON Administration Furosemide 20 mg 12/13/19 14:00 12/19/19 05:33 Lasix SLOW IVP 20 mg 0600,1400 RON Administration Hydralazine HCl 10 mg 12/13/19 05:40 12/16/19 09:54 Apresoline SLOW IVP 10 mg Q4H PRN Administration SBP Greater Than 180 Hydralazine HCl 75 mg 12/13/19 15:00 12/18/19 20:34 Apresoline PO 75 mg TID RON Administration Ceftriaxone Sodium 1 gm/ 100 mls @ 200 mls/hr 12/14/19 02:00 12/19/19 02:35 Sodium Chloride IVPB 100 mls Q24HR RON Administration Isosorbide Mononitrate 30 mg 12/18/19 09:00 12/18/19 09:36 Imdur Er PO 30 mg DAILY RON Administration Lisinopril 20 mg 12/14/19 09:00 12/18/19 09:37 Zestril PO 20 mg DAILY RON Administration Magnesium Oxide 400 mg 12/13/19 21:00 12/18/19 20:33 Magnesium Oxide PO 400 mg BID RON Administration Minoxidil 5 mg 12/18/19 09:00 12/18/19 09:35 Minoxidil PO 5 mg DAILY RON Administration Sodium Chloride 10 ml 12/13/19 21:00 12/18/19 20:40 Flush - Normal Saline IVF 10 ml Q12HR RON Administration Spironolactone 25 mg 12/14/19 09:00 12/18/19 09:35 Aldactone PO 25 mg DAILY RON Administration - Exam General Appearance: NAD Eye: PERRL ENT: normocephalic atraumatic, moist mucosa Neck: supple, symmetric, no lymphadenopathy Heart: no gallops, no rubs, normal peripheral pulses Respiratory: CTAB, no wheezes, no rales, no ronchi, normal chest expansion, no tachypnea Gastrointestinal: soft, no guarding, no rigidity Gastrointestinal - other findings: Very full urinary bladder, tender to palpation at urinary bladder only Extremities: no edema Skin: no lesions, no rashes Neurological: cranial nerve grossly intact, no focal deficits Musculoskeletal: generalized weakness Psychiatric: oriented to person Hosp A/P (1) Urinary retention due to benign prostatic hyperplasia Code(s): N40.1 - BENIGN PROSTATIC HYPERPLASIA WITH LOWER URINARY TRACT SYMP; R33.8 - OTHER RETENTION OF URINE Status: Acute (2) Acute metabolic encephalopathy Code(s): G93.41 - METABOLIC ENCEPHALOPATHY Status: Acute (3) UTI (urinary tract infection) Status: Acute (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 (5) Fall Code(s): W19.XXXA - UNSPECIFIED FALL, INITIAL ENCOUNTER Status: Acute (6) Hypertension Code(s): I10 - ESSENTIAL (PRIMARY) HYPERTENSION Status: Chronic Qualifiers: Hypertension type: essential hypertension Qualified Code(s): I10 - Essential (primary) hypertension (7) Weakness Code(s): R53.1 - WEAKNESS Status: Chronic (8) Acute on chronic diastolic (congestive) heart failure Code(s): I50.33 - ACUTE ON CHRONIC DIASTOLIC (CONGESTIVE) HEART FAILURE Status : Acute - Plan Plan: medical unit cardiology consultation, recommendations appreciated patient is a do not resuscitate, Do not intubate patient currently with urinary obstruction secondary to BPH added PRN straight cath Q4 hours as needed, residual bladder scan greater than 700 mL increase Flomax to BID KUB is benign continue antibiotics for urinary tract infection we are evaluating for subacute placement continue other home medications as able blood pressure control blood sugar control G.I. prophylaxis DVT prophylaxis
[2019-12-19] MEDS: Fluticasone Propionate Nasal Spray 16 gm Bottle NASAL SCH (12:31)
[2019-12-19] MEDS: Tamsulosin HCl 0.4 MG CAP PO SCH ×2 (19:30→21:44)
[2019-12-19] MEDS: carBAMazepine 100 mg Chewable Tablet PO SCH (21:43)
[2019-12-20] MEDS: cefTRIAXone\\ROCEPHIN 1 GM in Sodium Chloride 0.9% 100 ML IVPB SCH (01:44)
[2019-12-20] MEDS: Furosemide 20 MG/2 ML VIAL SLOW IVP SCH (05:38)
[2019-12-20] MEDS: Lisinopril 20 MG TAB PO SCH (09:00)
[2019-12-20] MEDS: Magnesium Oxide 400 MG TAB PO SCH (09:01)
[2019-12-20] MEDS: Spironolactone 25 MG TAB PO SCH (09:02)
[2019-12-20] MEDS: Amlodipine 10 MG TAB PO SCH (09:02)
[2019-12-20] MEDS: Isosorbide Mononitrate (ER) 30 MG TAB PO SCH (09:02)
[2019-12-20] MEDS: Finasteride 5 MG TAB PO SCH (09:02)
[2019-12-20] MEDS: Famotidine 20 MG TAB PO SCH (09:02)
[2019-12-20] MEDS: hydrALAZINE 25 MG TAB PO SCH (09:02)
[2019-12-20] MEDS: Tamsulosin HCl 0.4 MG CAP PO SCH (09:03)
[2019-12-20] MEDS: Fluticasone Propionate Nasal Spray 16 gm Bottle NASAL SCH (09:03)
[2019-12-20] MEDS: Minoxidil 2.5 MG TAB PO SCH (09:03)
[2019-12-20 12:22] VITALS: BP 130/49; TEMP 97.7
--- NOTE | 2019-12-20 14:21 | DIS ---
DATE OF ADMISSION: 12/14/2019 DATE OF DISCHARGE: 12/20/2019 REASON FOR ADMISSION: Fall. SIGNIFICANT FINDINGS: The patient was found to have acute urinary tract infection, which likely caused him to have dizziness resulting in a fall. The patient was admitted with acute metabolic encephalopathy and altered mental status, likely secondary to urinary tract infection. The patient was started on broad-spectrum IV antibiotics, please see full history and physical on day of admission from Dr. Bowen from 12/13/2019 for full details. The patient was also seen and evaluated by Cardiology, Dr. Lowery, please see full consultation notes and progress notes throughout his hospitalization for details. There was some bradycardia, and Dr. Lowery recommending discontinuation of medications that will cause bradycardia including his home carvedilol. The patient had appropriate CT scans of the brain, facial bones, and cervical spine, please see full radiographic reports for details. The patient had a good response to IV antibiotics and his symptoms improved. The patient was recommended safe for discharge to lower level of care. The patient's family electing to have the patient sent to the [facility] for continuing care. The patient recommended to complete a full course of oral antibiotics for resolution of urinary tract infection. The patient recommended to continue all other medications, to be re-evaluated by admitting physician. The patient recommended to follow up with primary care physician and all specialists in the upcoming weeks. CONDITION ON DISCHARGE: Stable. SPECIFIC INSTRUCTIONS WITH THE PATIENT/FAMILY: 1. The patient is recommended safe for discharge to lower level of care at the [facility]. 2. The patient is recommended to take all medications as directed, to be re-evaluated by admitting physician. 3. The patient is recommended to follow up with primary care physician and all specialists in the outpatient setting in the upcoming weeks. 4. The patient is recommended to return to acute care hospital immediately if signs or symptoms return, worsen, or any other new symptoms occur. TIME SPENT: Greater than 37 minutes spent coordinating care and discharge process for this patient. Job ID: [id number]
[2019-12-21] MEDS ORDERED: Furosemide 40 MG TAB PO SCH (07:30)
== END 2019-12-20 14:38 | disposition hospice, inpatient (51) | DRG 689 ==
LOC: ERS 23:48 → 2NO 12-13 01:58 → OBSVTOIN 12-14 10:32 → T4-A 12-16 14:56
PROVIDERS: ADMIT Internal Medicine; ATTEND Internal Medicine
DX: N39.0 Urinary tract infection, site not specified (principal); G93.41 Metabolic encephalopathy; I50.33 Acute on chronic diastolic (congestive) heart failure; Z66 Do not resuscitate; M62.82 Rhabdomyolysis; W18.39XA Other fall on same level, initial encounter; I35.1 Nonrheumatic aortic (valve) insufficiency; I16.0 Hypertensive urgency; I44.1 Atrioventricular block, second degree; N40.1 Benign prostatic hyperplasia with lower urinary tract symptoms; R33.9 Retention of urine, unspecified; F03.90 Unspecified dementia, unspecified severity, without behavioral disturbance, psychotic disturbance, mood disturbance, and anxiety; R00.1 Bradycardia, unspecified; Z85.828 Personal history of other malignant neoplasm of skin; Z86.73 Personal history of transient ischemic attack (TIA), and cerebral infarction without residual deficits
CPT/HCPCS: 12011; 36415; 51701; 70450; 70486; 71045; 72125; 74018; 80053; 81003; 81015; 82550; 82607; 82746; 83735; 83880; 84443; 84484; 85025; 87086; 93005; 93306; 96365; J0360; J0696; J1940; J3480; J3490